=== PATIENT | female | born 1960 | race Two or more races ===

== ENCOUNTER 2016-11-10 17:28 | Emergency (ER) | payer OTHER ==
[2016-11-10] MEDS ORDERED: Labetalol 100 MG/20 ML MDV IVPUSH ONE ×3 (18:00→19:15)
[2016-11-10] MEDS ORDERED: Sodium Chloride 0.9% 10 ML Syringe FLUSH PRN (18:00)
--- NOTE | 2016-11-10 18:02 | EDM.PDOC ---
ED HISTORY OF PRESENT ILLNESS - General Chief Complaint: Cardiovascular Problem Stated Complaint: HIGH BLOOD PRESSURE Time Seen by Provider: 11/10/16 17:40 Source of Information: Reports: Patient, RN notes reviewed - History of Present Illness INITIAL COMMENTS - FREE TEXT/NARRATIVE: 56-year-old lady has been sent over from the clinic for evaluation and treatment of hypertension. She does have long-standing history of hypertension. She ran out of her meds a few weeks ago. She presented to the clinic for med refills. However her blood pressure was very high well over 200 systolic and she also seemed to have some "labored breathing". Therefore sent here for evaluation and treatment. She states she has had some anterior chest tightness and heaviness over the past week or so. She does get short of breath with exertion. She does have mild frontal headache. No voiding symptoms. - Related Data Allergies/ADRs: Allergies Allergy/AdvReac Type Severity Reaction Status Date / Time No Known Allergies Allergy Verified 08/10/15 07:06 Home Meds: Home Meds Doxazosin [Doxazosin Mesylate] 2 mg PO BEDTIME 10/15/15 [History] Metoprolol Tartrate [Lopressor] 50 mg PO Q12HR #60 tablet 07/23/16 [Rx] Allopurinol [Zyloprim] 100 mg PO BID #60 tablet 11/10/16 [Rx] Allopurinol [Zyloprim] 200 mg PO DAILY 11/10/16 [History] Doxazosin [Cardura] 2 mg PO BEDTIME #30 tablet 11/10/16 [Rx] Metoprolol Tartrate 50 mg PO BID #60 tablet 11/10/16 [Rx] amLODIPine [Norvasc] 10 mg PO DAILY 11/10/16 [History] amLODIPine [Norvasc] 10 mg PO DAILY #30 tablet 11/10/16 [Rx] Past Medical History Cardiovascular History: Reports: Hypertension Genitourinary History: Reports: Renal disease Musculoskeletal History: Reports: Gout Endocrine/Metabolic History: Reports: Diabetes, type II Social & Family History - Tobacco Use Smoking Status *Q: Never Smoker Second Hand Smoke Exposure: No - Caffeine Use Caffeine Use: Reports: None - Recreational Drug Use Recreational Drug Use: No - Living Situation & Occupation Occupation: unemployed ED ROS GENERAL - Review of Systems Review Of Systems: See Below Constitutional: Denies: fever, chills, diaphoresis HEENT: Denies: Sinus problem, Throat pain Respiratory: Reports: Shortness of Breath (On exertion) Cardiovascular: Reports: Chest pain (Occasional chest heaviness) GI/Abdominal: Denies: Abdominal pain, Nausea, Vomiting Musculoskeletal: Denies: neck pain, shoulder pain, arm pain Skin: Reports: no symptoms Neurological: Reports: Headache. Denies: Numbness (My), Tingling ED EXAM, GENERAL - Physical Exam Exam: See Below General Appearance: alert, no apparent distress Eye Exam: bilateral eye: PERRL Throat/Mouth: Normal inspection, Normal oropharynx Head: atraumatic. No: facial swelling Neck: supple, full range of motion, other (No JVD) Respiratory/Chest: respiratory distress (Mild tachypnea noted). No: rales, rhonchi, wheezing Cardiovascular: regular rate, rhythm GI/Abdominal: soft, non tender. No: guarding Back Exam: No: CVA tenderness (L), CVA tenderness (R) Extremities: normal inspection. No: pedal edema, leg pain Neurological: alert, oriented, no motor/sensory deficits Skin Exam: Warm, Dry, Normal color EKG INTERPRETATION EKG Date: 11/10/16 Rhythm: NSR [place]: normal P-wave: present QRS: normal ST-T: depressed (There is slight elevation in V2, T-wave inversion aVL) Course - Vital Signs Last Recorded V/S: Last Vital Signs Temp 98.1 F 11/10/16 17:49 Pulse 69 11/10/16 18:55 Resp 22 H 11/10/16 17:49 BP 183/75 H 11/10/16 18:55 Pulse Ox 98 11/10/16 17:49 - Orders/Labs/Meds Orders: Active Orders 24 hr Category Date Time Status EKG 12 Lead [EKG Documentation Completion] [RC] STAT Care 11/10/16 17:41 Active Peripheral IV Care [RC] . DIRECTED Care 11/10/16 18:01 Active Chest 1V Frontal [CR] Stat Exams 11/10/16 17:41 Taken Sodium Chloride 0.9% [Saline Flush] Med 11/10/16 18:00 Active 10 ml FLUSH ASDIRECTED PRN Peripheral IV Insertion Adult [OM.PC] Stat Oth 11/10/16 18:00 Ordered Medication Orders Sodium Chloride (Saline Flush) 10 ml FLUSH ASDIRECTED PRN PRN Reason: Keep Vein Open Last Admin: 11/10/16 18:35 Dose: 10 ml Labs: Laboratory Tests 11/10/16 11/10/16 11/10/16 Range/Units 18:12 18:12 18:12 WBC 11.49 H (3.98-10.04) K/mm3 RBC 2.94 L (3.98-5.22) M/mm3 Hgb 9.0 L (11.2-15.7) gm/L Hct 27.1 L (34.1-44.9) % MCV 92.2 (79.4-94.8) fl MCH 30.6 (25.6-32.2) pg MCHC 33.2 (32.2-35.5) g/dl RDW Std Deviation 43.0 (36.4-46.3) fL Plt Count 265 (182-369) K/mm3 MPV 8.7 L (9.4-12.3) fl Neut % (Auto) 73.4 H (34.0-71.1) % Lymph % (Auto) 13.0 L (19.3-51.7) % [place] % (Auto) 8.3 (4.7-12.5) % Eos % (Auto) 4.8 (0.7-5.8) Baso % (Auto) 0.3 (0.1-1.2) % Neut # (Auto) 8.44 H (1.56-6.13) K/mm3 Lymph # (Auto) 1.49 (1.18-3.74) K/mm3 [place] # (Auto) 0.95 H (0.24-0.36) K/mm3 Eos # (Auto) 0.55 H (0.04-0.36) K/mm3 Baso # (Auto) 0.04 (0.01-0.08) K/mm3 Sodium 138 (136-145) mEq/L Potassium 4.1 (3.5-5.1) mEq/L Chloride 105 (98-107) mEq/L Carbon Dioxide 19 L (21-32) mEq/L Anion Gap 18.1 H (5-15) BUN 78 H (7-18) mg/dL Creatinine 6.1 H (0.55-1.02) mg/dL Est Cr Clr Drug Dosing 7.31 mL/min Estimated GFR (MDRD) 7 (>60) mL/min BUN/Creatinine Ratio 12.8 L (14-18) Glucose 117 H (74-106) mg/dL Calcium 8.7 (8.5-10.1) mg/dL Total Bilirubin 0.2 (0.2-1.0) mg/dL AST 10 L (15-37) U/L ALT 16 (14-59) U/L Alkaline Phosphatase 73 (46-116) U/L Troponin I < 0.017 (0.00-0.056) ng/mL B-Natriuretic Peptide 125 H (0-100) pg/mL Total Protein 6.9 (6.4-8.2) g/dl Albumin 2.6 L (3.4-5.0) g/dl Globulin 4.3 gm/dL Albumin/Globulin Ratio 0.6 L (1-2) Meds: Medications Generic Name Dose Route Start Last Admin Trade Name Freq PRN Reason Stop Dose Admin Sodium Chloride 10 ml 11/10/16 18:00 11/10/16 18:35 Saline Flush FLUSH 10 ml ASDIRECTED PRN Administration Keep Vein Open Discontinued Medications Generic Name Dose Route Start Last Admin Trade Name Freq PRN Reason Stop Dose Admin Labetalol HCl 20 mg 11/10/16 18:00 11/10/16 18:30 Normodyne IVPUSH 11/10/16 18:01 20 mg ONETIME ONE Administration Protocol Labetalol HCl 20 mg 11/10/16 18:50 11/10/16 18:55 Normodyne IVPUSH 11/10/16 18:51 20 mg ONETIME ONE Administration Protocol Labetalol HCl 40 mg 11/10/16 19:15 Normodyne IVPUSH 11/10/16 19:16 ONETIME ONE Protocol - Re-Assessments/Exams Free Text/Narrative Re-Assessment/Exam: 11/10/16 19:33. Patient has a long-standing history of hypertension. She has been in renal failure in the past, was on a list for renal transplant. She presented here to the ED about a year ago and her creatinine was 4.0 at that time. She presented to our ED ED a few months ago and creatinine was 5.8. At that Time she been off meds for several months. Her ED provider at that time did contact her dog day care attendant Dr. Bermudez who wanted to see her in 2 or 3 days. It appears that she has not made any attempts for followup with Dr Bermudez. This evening her creatinine is 6.1. BUN 78. Potassium 4.1 hemoglobin 9.0. Other labs as documented. Her chest x-ray looks surprisingly good, no evidence for CHF at this time. I visited with Dr. Bermudez this evening and he states his clinic has been trying to contact her without success. She once again has been off meds for a while, she states several weeks. Her blood pressures on arrival here to the ED was in the 212/90 range. We have given 2 doses of labetalol 20 mg IV and now a dose of 40 mg IV. I have faxed scripts for her previously prescribed meds to her pharmacy, [facility]. I discussed with her and her that her kidney function is extremely poor at this point and that she is very close to needing dialysis or kidney transplant at this time. I discussed the importance of taking her meds as previously prescribed and not letting them run out. Dr. Bermudez is able to see her either 9:00 tomorrow morning or Thursday. I presented both options to the patient and her and they state they will go preferably Thursday. 11/10/16 19:45 contact phone number for her and her is [phone] which I believe is her 's cell phone number. 11/10/16 19:48 her blood pressure 189/71, will discharge home at this time Departure - Departure Time of Disposition: 19:51 Disposition: Home, Self-Care 01 Condition: serious Clinical Impression: Renal insufficiency syndrome Hypertension Qualifiers: Hypertension type: essential hypertension Qualified Code(s): I10 - Essential ( primary) hypertension Prescriptions: Allopurinol [Zyloprim] 100 mg PO BID #60 tablet Doxazosin [Cardura] 2 mg PO BEDTIME #30 tablet Metoprolol Tartrate 50 mg PO BID #60 tablet amLODIPine [Norvasc] 10 mg PO DAILY #30 tablet Referrals: Ayana Walsh [Primary Care Provider] - Forms: ED Department Discharge Additional Instructions: Prescriptions for your metoprolol,doxazosin, allopurinol have been sent electronic to any pharmacy [place]. You've been provided paper copy of prescription for your amlodipine. Fill these prescriptions this evening. Any pharmacy is open until [address] Bermudez at his clinic either tomorrow morning 9:00 central time or Thursday 9:00 central time which is 8:00 or time. Continue to see Dr. Walsh at our [facility] clinic. I do recommend he pickling drum operator a blood pressure cuff and check your blood pressure twice daily, keep a record for your medical providers. Return to ED as needed. Your blood pressure on discharge is improved, 189/71 - My Orders Last 24 Hours: My Active Orders 11/10/16 17:41 EKG 12 Lead [EKG Documentation Completion] [RC] STAT Chest 1V Frontal [CR] Stat 11/10/16 18:00 Sodium Chloride 0.9% [Saline Flush] 10 ml FLUSH ASDIRECTED PRN Peripheral IV Insertion Adult [OM.PC] Stat 11/10/16 18:01 Peripheral IV Care [RC] . DIRECTED - Assessment/Plan Last 24 Hours: My Active Orders 11/10/16 17:41 EKG 12 Lead [EKG Documentation Completion] [RC] STAT Chest 1V Frontal [CR] Stat 11/10/16 18:00 Sodium Chloride 0.9% [Saline Flush] 10 ml FLUSH ASDIRECTED PRN Peripheral IV Insertion Adult [OM.PC] Stat 11/10/16 18:01 Peripheral IV Care [RC] . DIRECTED
[2016-11-10 20:17] VITALS: BP 177/80
--- NOTE | 2016-11-11 07:05 | CR ---
Chest: Portable view of the chest was obtained. Comparison: Previous chest x-ray of 07/23/16. Heart size appears within normal limits for portable technique. Tortuous thoracic aorta is noted. Lungs are clear with no acute infiltrates. Bony structures are grossly intact. Impression: 1. Incidental findings. Nothing acute is identified on portable chest x-ray. Diagnostic code #2
== END 2016-11-10 20:14 | disposition home or self-care (01) ==
LOC: JD.ED 17:28
DX: I10 Essential (primary) hypertension (principal); N28.9 Disorder of kidney and ureter, unspecified; E11.9 Type 2 diabetes mellitus without complications; M10.9 Gout, unspecified; Z79.899 Other long term (current) drug therapy
CPT/HCPCS: 36415; 71010; 80053; 83880; 84484; 85025; 93005; 96374; 96376; 99284; J7050

== ENCOUNTER 2017-06-11 18:06 | Emergency (ER) | payer OTHER, SELFPAY ==
[2017-06-11] MEDS ORDERED: Sodium Chloride 0.9% 10 ML Syringe FLUSH PRN (18:31)
[2017-06-11] MEDS ORDERED: Sodium Bicarbonate 8.4% 50 MEQ/50 ML Syringe IVPUSH ONE (18:32)
[2017-06-11] MEDS ORDERED: Albuterol 0.083% 2.5 MG/3 ML Neb Soln NEB ONE (18:34)
[2017-06-11] MEDS ORDERED: Sodium Chloride 0.9% 100 ML ONE (18:48)
[2017-06-11 18:51] VITALS: BP 141/72
[2017-06-11] MEDS: Calcium Gluconate 10% 1 GM/10 ML SDV IVPUSH ONE ×2 (18:54→18:55)
[2017-06-11] MEDS ORDERED: Calcium Gluconate 1 GM in Sodium Chloride 0.9% 100 ML IV SCH (19:00)
--- NOTE | 2017-06-11 19:01 | EDM.PDOC ---
ED HPI GENERAL MEDICAL PROBLEM - General Chief Complaint: General Stated Complaint: Renal failure Time Seen by Provider: 06/11/17 18:30 Source of Information: Reports: Patient, Family ( and "soon to be" daughter in law), Secondary Social Studies Teacher (Interpretation service utlized), RN Notes Reviewed History Limitations: Reports: Language Barrier - History of Present Illness INITIAL COMMENTS - FREE TEXT/NARRATIVE: 56 year old female presents to the ED today, brought in by family and a professor of social work from adult protective services, due to concerns for her well being. She has been seeing Dr. Walsh and was diagnosed with renal failure. She had a scheduled appointment today with Dr. Walsh and did not show up. Dr. Walsh reportedly then called law enforcement to do a wellness check and adult protective services got involved. The paperwork brought by [facility] states "Aurora has kidney failure and is at very high risk for . her will not take her for appropriate medical care. He stated he would just wait for her to ." Patient is [place]. Secondary Social Studies Teacher service was utilized. I interviewed the patient in private with nursing staff and our professor of social work Esther present at bedside as well. I asked family to step out during initial interview. The patient said that she has known about her kidney failure for some time. She admits to intermittent chest pain that does not radiate. She also her right shoulder pain, back pain, and "vagina" pain. She denies pain with urination or abnormal vaginal discharge. She denies nausea, vomiting, diarrhea or constipation. She admits to feeling short of breath with exertion. No cough. The patient is a poor historian. I asked if she's been on dialysis and she said yes. I then asked her if she's ever been hooked to a machine to clean her blood and she said no. She says she voids about 3 times a day. - Related Data Allergies Allergy/AdvReac Type Severity Reaction Status Date / Time No Known Allergies Allergy Verified 06/11/17 18:47 Home Meds: Home Meds Doxazosin [Doxazosin Mesylate] 2 mg PO BEDTIME 10/15/15 [History] Metoprolol Tartrate [Lopressor] 50 mg PO Q12HR #60 tablet 07/23/16 [Rx] Allopurinol [Zyloprim] 100 mg PO BID #60 tablet 11/10/16 [Rx] Allopurinol [Zyloprim] 200 mg PO DAILY 11/10/16 [History] Doxazosin [Cardura] 2 mg PO BEDTIME #30 tablet 11/10/16 [Rx] Metoprolol Tartrate 50 mg PO BID #60 tablet 11/10/16 [Rx] amLODIPine [Norvasc] 10 mg PO DAILY 11/10/16 [History] amLODIPine [Norvasc] 10 mg PO DAILY #30 tablet 11/10/16 [Rx] Past Medical History Cardiovascular History: Reports: Hypertension Respiratory History: Reports: Asthma Genitourinary History: Reports: Renal Disease Musculoskeletal History: Reports: Gout Endocrine/Metabolic History: Reports: Diabetes, Type II Social & Family History - Tobacco Use Smoking Status *Q: Unknown Ever Smoked Second Hand Smoke Exposure: No - Caffeine Use Caffeine Use: Reports: None - Recreational Drug Use Recreational Drug Use: No - Living Situation & Occupation Occupation: Unemployed ED ROS GENERAL - Review of Systems Review Of Systems: See Below Constitutional: Reports: No Symptoms. Denies: Fever, Chills Respiratory: Reports: Shortness of Breath, Wheezing. Denies: Pleuritic Chest Pain, Cough, Sputum Cardiovascular: Reports: Chest Pain, Dyspnea on Exertion. Denies: Edema, Lightheadedness GI/Abdominal: Denies: Abdominal Pain, Constipation, Diarrhea, Nausea, Vomiting : Reports: Other (vaginal pain). Denies: Dysuria Neurological: Reports: No Symptoms. Denies: Confusion, Dizziness ED EXAM, GENERAL - Physical Exam Exam: See Below Exam Limited By: No Limitations General Appearance: Alert, Mild Distress, Obese Respiratory/Chest: No Respiratory Distress, Lungs Clear, Normal Breath Sounds, No Accessory Muscle Use, Chest Non-Tender, Other (audible wheezing but lungs are clear to auscultation. oxygen saturation is 97% on room air.) Cardiovascular: Normal Peripheral Pulses, Regular Rate, Rhythm, No Murmur GI/Abdominal: Normal Bowel Sounds, Soft, Non-Tender, No Distention Neurological: Alert, Normal Cognition Psychiatric: Flat Affect Skin Exam: Warm, Dry, Intact EKG INTERPRETATION EKG Date: 06/11/17 Time: 18:38 Rhythm: Other (Sinus negrita) Rate (Beats/Min): 52 [place]: Normal P-Wave: Present QRS: RBBB (incomplete) EKG Interpretation Comments: EKG read by Dr. Gordon. Sinus negrita 52 bpm with 1st degree AV block. Incomplete RBBB. T wave inversion in AVL. QT/QTc prolonged for rate. Course - Vital Signs Last Recorded V/S: Last Vital Signs Temp 98.0 F 06/11/17 18:47 Pulse 51 L 06/11/17 18:47 Resp 20 06/11/17 18:47 BP 141/72 H 06/11/17 18:47 Pulse Ox 96 06/11/17 18:47 - Orders/Labs/Meds Orders: Active Orders 24 hr Category Date Time Status Cardiac Monitoring [RC] . DIRECTED Care 06/11/17 18:31 Active EKG Documentation Completion [RC] ASDIRECTED Care 06/11/17 18:31 Active Peripheral IV Care [RC] . DIRECTED Care 06/11/17 18:31 Active RT Aerosol Therapy [RC] ASDIRECTED Care 06/11/17 18:34 Active Calcium Gluconate 1 gm Med 06/11/17 19:00 Active Sodium Chloride 0.9% [Normal Saline] 100 ml IV ASDIRECTED Sodium Chloride 0.9% [Saline Flush] Med 06/11/17 18:31 Active 10 ml FLUSH ASDIRECTED PRN Peripheral IV Insertion Adult [OM.PC] Stat Oth 06/11/17 18:31 Ordered EKG 12 Lead [EK] Stat Ther 06/11/17 18:31 Ordered Medication Orders Calcium Gluconate 1 gm/ Sodium (Chloride) 110 mls @ 110 mls/hr IV ASDIRECTED SANA Last Admin: 06/11/17 18:54 Dose: 110 mls/hr Sodium Chloride (Saline Flush) 10 ml FLUSH ASDIRECTED PRN PRN Reason: Keep Vein Open Last Admin: 06/11/17 18:56 Dose: 10 ml Labs: Laboratory Tests 06/11/17 06/11/17 06/11/17 Range/Units 18:30 18:30 18:30 WBC 8.97 (3.98-10.04) K/mm3 RBC 2.89 L (3.98-5.22) M/mm3 Hgb 8.9 L (11.2-15.7) gm/L Hct 27.3 L (34.1-44.9) % MCV 94.5 (79.4-94.8) fl MCH 30.8 (25.6-32.2) pg MCHC 32.6 (32.2-35.5) g/dl RDW Std Deviation 50.2 H (36.4-46.3) fL Plt Count 229 (182-369) K/mm3 MPV 9.7 (9.4-12.3) fl Neutrophils % (Manual) 77 H (40-60) % Band Neutrophils % 0 (0-10) % Lymphocytes % (Manual) 14 L (20-40) % Atypical Lymphs % 0 % Monocytes % (Manual) 4 (2-10) % Eosinophils % (Manual) 5 (0.7-5.8) % Basophils % (Manual) 0 L (0.1-1.2) Platelet Estimate Adequate Plt Morphology Comment Normal Polychromasia 1+ slight Hypochromasia 1+ slight Poikilocytosis 1+ slight Anisocytosis 1+ slight Microcytosis 1+ slight Macrocytosis 1+ slight Tear Drop Cells 1+ slight RBC Morph Comment Abnormal PT 9.9 (8.0-13.0) SECONDS INR 0.91 Sodium 137 (136-145) mEq/L Potassium 5.0 (3.5-5.1) mEq/L Chloride 105 (98-107) mEq/L Carbon Dioxide 16 L (21-32) mEq/L Anion Gap 21.0 H (5-15) BUN 83 H (7-18) mg/dL Creatinine 7.2 H (0.55-1.02) mg/dL Est Cr Clr Drug Dosing 6.19 mL/min Estimated GFR (MDRD) 6 (>60) mL/min BUN/Creatinine Ratio 11.5 L (14-18) Glucose 109 H (74-106) mg/dL Lactic Acid (0.4-2.0) mmol/L Calcium 9.3 (8.5-10.1) mg/dL Magnesium 2.6 H (1.8-2.4) mg/dl Total Bilirubin 0.2 (0.2-1.0) mg/dL AST 14 L (15-37) U/L ALT 20 (14-59) U/L Alkaline Phosphatase 52 (46-116) U/L Troponin I < 0.017 (0.00-0.056) ng/mL NT-Pro-B Natriuret Pep (0-125) pg/mL Total Protein 7.5 (6.4-8.2) g/dl Albumin 3.3 L (3.4-5.0) g/dl Globulin 4.2 gm/dL Albumin/Globulin Ratio 0.8 L (1-2) 06/11/17 06/11/17 Range/Units 18:30 19:26 WBC (3.98-10.04) K/mm3 RBC (3.98-5.22) M/mm3 Hgb (11.2-15.7) gm/L Hct (34.1-44.9) % MCV (79.4-94.8) fl MCH (25.6-32.2) pg MCHC (32.2-35.5) g/dl RDW Std Deviation (36.4-46.3) fL Plt Count (182-369) K/mm3 MPV (9.4-12.3) fl Neutrophils % (Manual) (40-60) % Band Neutrophils % (0-10) % Lymphocytes % (Manual) (20-40) % Atypical Lymphs % % Monocytes % (Manual) (2-10) % Eosinophils % (Manual) (0.7-5.8) % Basophils % (Manual) (0.1-1.2) Platelet Estimate Plt Morphology Comment Polychromasia Hypochromasia Poikilocytosis Anisocytosis Microcytosis Macrocytosis Tear Drop Cells RBC Morph Comment PT (8.0-13.0) SECONDS INR Sodium (136-145) mEq/L Potassium (3.5-5.1) mEq/L Chloride (98-107) mEq/L Carbon Dioxide (21-32) mEq/L Anion Gap (5-15) BUN (7-18) mg/dL Creatinine (0.55-1.02) mg/dL Est Cr Clr Drug Dosing mL/min Estimated GFR (MDRD) (>60) mL/min BUN/Creatinine Ratio (14-18) Glucose (74-106) mg/dL Lactic Acid 0.4 (0.4-2.0) mmol/L Calcium (8.5-10.1) mg/dL Magnesium (1.8-2.4) mg/dl Total Bilirubin (0.2-1.0) mg/dL AST (15-37) U/L ALT (14-59) U/L Alkaline Phosphatase (46-116) U/L Troponin I (0.00-0.056) ng/mL NT-Pro-B Natriuret Pep 2958 H (0-125) pg/mL Total Protein (6.4-8.2) g/dl Albumin (3.4-5.0) g/dl Globulin gm/dL Albumin/Globulin Ratio (1-2) Meds: Medications Generic Name Dose Route Start Last Admin Trade Name Jin PRN Reason Stop Dose Admin Calcium Gluconate 1 gm/ Sodium 110 mls @ 110 mls/hr 06/11/17 19:00 06/11/17 18:54 Chloride IV 110 mls/hr ASDIRECTED SANA Administration Sodium Chloride 10 ml 06/11/17 18:31 06/11/17 18:56 Saline Flush FLUSH 10 ml ASDIRECTED PRN Administration Keep Vein Open Discontinued Medications Generic Name Dose Route Start Last Admin Trade Name Freq PRN Reason Stop Dose Admin Albuterol 10 mg 06/11/17 18:34 06/11/17 18:43 Proventil Neb Soln NEB 06/11/17 18:35 10 mg ONETIME ONE Administration Calcium Gluconate 1 gm 06/11/17 18:32 06/11/17 18:55 Calcium Gluconate IVPUSH 06/11/17 18:33 Not Given ONETIME ONE Sodium Chloride Confirm 06/11/17 18:48 06/11/17 18:55 Normal Saline Administered 06/11/17 18:49 Not Given Dose 100 mls @ as directed .ROUTE .STK-MED ONE Sodium Bicarbonate 50 meq 06/11/17 18:32 06/11/17 18:56 Sodium Bicarbonate 8.4% IVPUSH 06/11/17 18:33 50 meq ONETIME ONE Administration - Re-Assessments/Exams Free Text/Narrative Re-Assessment/Exam: Initial history was obtained with our naval aircrewman avionics service. Discussed patient with Dr. Gordon immediately after history H&P exam. Dr. Gordon recommends treating immediately with calcium gluconate, sodium bicarb and Albuterol 10mg neb due to suspected hyperkalemia related to renal failure. Labs reviewed from 06/02/17. Creatinine at that time was 7.1 with BUN 78. Potassium was 5.6 at that time. H&H was 9.3 and 28. 06/11/17 19:30 Our nurse TRISTON English is Dave as well and was able to spend a lot of time with the patient and family explaining the risk of this going untreated. After a long discussion, the patient and her family have agreed to transfer to [place] to undergo renal failure treatment. 06/11/17 19:[address] Dorado at [facility]. He has accepted care of patient for direct admission. Patient will be transported via ground ambulance. Departure - Departure Time of Disposition: 20:30 Disposition: DC/Tfer to [facility] 02 Condition: Fair Clinical Impression: Renal failure Qualifiers: Renal failure chronicity: acute on chronic Acute renal failure type: unspecified Chronic kidney disease stage: unspecified stage Qualified Code(s): N17.9 - Acute kidney failure, unspecified - Discharge Information Referrals: Ayana Walsh [Primary Care Provider] - Forms: ED Department Discharge - My Orders Last 24 Hours: My Active Orders 06/11/17 18:31 Cardiac Monitoring [RC] . DIRECTED EKG Documentation Completion [RC] ASDIRECTED Peripheral IV Care [RC] . DIRECTED Sodium Chloride 0.9% [Saline Flush] 10 ml FLUSH ASDIRECTED PRN Peripheral IV Insertion Adult [OM.PC] Stat EKG 12 Lead [EK] Stat 06/11/17 18:34 RT Aerosol Therapy [RC] ASDIRECTED 06/11/17 19:00 Calcium Gluconate 1 gm Sodium Chloride 0.9% [Normal Saline] 100 ml IV ASDIRECTED - Assessment/Plan Last 24 Hours: My Active Orders 06/11/17 18:31 Cardiac Monitoring [RC] . DIRECTED EKG Documentation Completion [RC] ASDIRECTED Peripheral IV Care [RC] . DIRECTED Sodium Chloride 0.9% [Saline Flush] 10 ml FLUSH ASDIRECTED PRN Peripheral IV Insertion Adult [OM.PC] Stat EKG 12 Lead [EK] Stat 06/11/17 18:34 RT Aerosol Therapy [RC] ASDIRECTED 06/11/17 19:00 Calcium Gluconate 1 gm Sodium Chloride 0.9% [Normal Saline] 100 ml IV ASDIRECTED
== END 2017-06-11 20:40 ==
LOC: JD.ED 18:06
DX: N17.9 Acute kidney failure, unspecified (principal); I10 Essential (primary) hypertension; E11.9 Type 2 diabetes mellitus without complications; Z79.899 Other long term (current) drug therapy
CPT/HCPCS: 36415; 80053; 83605; 83735; 83880; 84484; 85025; 85610; 93005; 94640; 96365; 96375; 99285; J0610; J7030; J7050; 93010

== ENCOUNTER 2017-08-28 10:17 | Emergency (ER) | payer OTHER, SELFPAY ==
[2017-08-28] MEDS: Labetalol 100 MG/20 ML MDV IVPUSH ONE (11:13)
[2017-08-28] MEDS: Sodium Chloride 0.9% 10 ML Syringe FLUSH PRN (11:14)
--- NOTE | 2017-08-28 11:35 | EDM.PDOC ---
ED HPI GENERAL MEDICAL PROBLEM - General Chief Complaint: Cardiovascular Problem Stated Complaint: HIGH BP Time Seen by Provider: 08/28/17 10:34 Source of Information: Reports: Patient, Family, RN Notes Reviewed () - History of Present Illness INITIAL COMMENTS - FREE TEXT/NARRATIVE: Patient is been sent over from [facility] clinic with concern about elevated blood pressure. She had a blood pressure at the clinic in the 220s systolic range. On arrival to ED blood pressure is around 211 systolic. She has very slight headache. She does have history of renal failure on dialysis. Had long-standing hypertension. Been on multiple medications for that. She did run out of her amlodipine about 5 or 6 weeks ago, has not had that prescription refilled. Apparently has continued to take her other 3 blood pressure meds as well as other previously prescribed medications. She has no chest pain today, no abdominal pain nausea or vomiting. She has no visual symptomatology. He has no upper or lower extremity symptomatology. Last dialysis run was yesterday. Headache Pain Score (Numeric/FACES): 6 - Related Data Allergies Allergy/AdvReac Type Severity Reaction Status Date / Time No Known Allergies Allergy Verified 06/11/17 18:47 Home Meds: Home Meds Metoprolol Tartrate [Lopressor] 50 mg PO Q12HR #60 tablet 07/23/16 [Rx] Allopurinol [Zyloprim] 100 mg PO BID 11/10/16 [History] Cinacalcet [Sensipar] 30 mg PO DAILY 08/28/17 [History] Ferrous Sulfate [Iron] 325 mg PO BID 08/28/17 [History] Lisinopril 20 mg PO DAILY 08/28/17 [History] Losartan Potassium 50 mg PO DAILY 08/28/17 [History] Losartan [Cozaar] 50 mg PO DAILY #30 tab 08/28/17 [Rx] Sevelamer Carbonate [Renvela] 800 mg PO TID 08/28/17 [History] Sodium Bicarbonate 325 mg PO TID 08/28/17 [History] amLODIPine Besylate [Amlodipine Besylate] 10 mg PO DAILY #30 tablet 08/28/17 [Rx ] Past Medical History Cardiovascular History: Reports: Hypertension Respiratory History: Reports: Asthma Genitourinary History: Reports: Dialysis, Renal Disease Musculoskeletal History: Reports: Gout Neurological History: Reports: TIA Endocrine/Metabolic History: Reports: Diabetes, Type II Social & Family History - Family History Family Medical History: Noncontributory - Tobacco Use Smoking Status *Q: Never Smoker Second Hand Smoke Exposure: No - Caffeine Use Caffeine Use: Reports: Tea - Recreational Drug Use Recreational Drug Use: No - Living Situation & Occupation Occupation: Unemployed ED ROS GENERAL - Review of Systems Review Of Systems: See Below Constitutional: Denies: Fever, Chills, Diaphoresis HEENT: Reports: No Symptoms Respiratory: Denies: Shortness of Breath, Pleuritic Chest Pain Cardiovascular: Denies: Chest Pain GI/Abdominal: Denies: Abdominal Pain, Nausea, Vomiting Musculoskeletal: Reports: No Symptoms Skin: Reports: No Symptoms Neurological: Reports: Headache (Mild) ED EXAM, GENERAL - Physical Exam Exam: See Below General Appearance: Alert, No Apparent Distress Eye Exam: Bilateral Eye: PERRL Nose: Normal Inspection Throat/Mouth: Normal Inspection, Normal Oropharynx Head: Atraumatic. No: Facial Swelling Neck: Supple, Full Range of Motion Respiratory/Chest: No Respiratory Distress, Lungs Clear, Normal Breath Sounds Cardiovascular: Regular Rate, Rhythm GI/Abdominal: Soft, Non-Tender Back Exam: No: CVA Tenderness (L) Extremities: No: Pedal Edema, Leg Pain Neurological: Alert, Oriented, No Motor/Sensory Deficits Skin Exam: Warm, Dry, Normal Color Course - Vital Signs Last Recorded V/S: Last Vital Signs Temp 97.8 F 08/28/17 10:28 Pulse 59 L 08/28/17 11:37 Resp 19 08/28/17 11:37 BP 194/56 H 08/28/17 12:46 Pulse Ox 93 L 08/28/17 11:37 - Orders/Labs/Meds Orders: Active Orders 24 hr Category Date Time Status Peripheral IV Care [RC] . DIRECTED Care 08/28/17 11:03 Active Peripheral IV Insertion Adult [OM.PC] Stat Oth 08/28/17 11:03 Ordered Labs: Laboratory Tests 08/28/17 08/28/17 Range/Units 11:00 11:10 WBC 8.57 (3.98-10.04) K/mm3 RBC 3.65 L (3.98-5.22) M/mm3 Hgb 11.5 (11.2-15.7) gm/L Hct 36.8 (34.1-44.9) % MCV 100.8 H (79.4-94.8) fl MCH 31.5 (25.6-32.2) pg MCHC 31.3 L (32.2-35.5) g/dl RDW Std Deviation 56.3 H (36.4-46.3) fL Plt Count 252 (182-369) K/mm3 MPV 9.1 L (9.4-12.3) fl Neut % (Auto) 56.8 (34.0-71.1) % Lymph % (Auto) 27.5 (19.3-51.7) % [place] % (Auto) 9.6 (4.7-12.5) % Eos % (Auto) 5.3 (0.7-5.8) Baso % (Auto) 0.7 (0.1-1.2) % Neut # (Auto) 4.87 (1.56-6.13) K/mm3 Lymph # (Auto) 2.36 (1.18-3.74) K/mm3 [place] # (Auto) 0.82 H (0.24-0.36) K/mm3 Eos # (Auto) 0.45 H (0.04-0.36) K/mm3 Baso # (Auto) 0.06 (0.01-0.08) K/mm3 Sodium 137 (136-145) mEq/L Potassium 4.3 (3.5-5.1) mEq/L Chloride 101 (98-107) mEq/L Carbon Dioxide 27 (21-32) mEq/L Anion Gap 13.3 (5-15) BUN 37 H (7-18) mg/dL Creatinine 6.4 H (0.55-1.02) mg/dL Est Cr Clr Drug Dosing 6.88 mL/min Estimated GFR (MDRD) 7 (>60) mL/min BUN/Creatinine Ratio 5.8 L (14-18) Glucose 83 (74-106) mg/dL Calcium 9.5 (8.5-10.1) mg/dL Total Bilirubin 0.4 (0.2-1.0) mg/dL AST 35 (15-37) U/L ALT 73 H (14-59) U/L Alkaline Phosphatase 90 (46-116) U/L Total Protein 7.7 (6.4-8.2) g/dl Albumin 3.4 (3.4-5.0) g/dl Globulin 4.3 gm/dL Albumin/Globulin Ratio 0.8 L (1-2) Meds: Medications Discontinued Medications Generic Name Dose Route Start Last Admin Trade Name Jin PRN Reason Stop Dose Admin Amlodipine Besylate 10 mg 08/28/17 12:28 08/28/17 12:46 Norvasc PO 08/28/17 12:29 10 mg ONETIME ONE Administration Labetalol HCl 20 mg 08/28/17 11:05 08/28/17 11:13 Normodyne IVPUSH 08/28/17 11:06 20 mg ONETIME ONE Administration Protocol Sodium Chloride 10 ml 08/28/17 11:03 08/28/17 11:14 Saline Flush FLUSH 10 ml ASDIRECTED PRN Administration Keep Vein Open - Re-Assessments/Exams Free Text/Narrative Re-Assessment/Exam: 08/28/17 12:29 Blood pressures come down to 160-180 systolic after a low 20 mg IV. Labs are as documented. She is not been taking amlodipine previously prescribed and last prescribed June 11. Therefore likely ran out around the end of the year about 6 weeks ago. We'll have her start back on that. She is asymptomatic at this time. Discharge instructions as documented Departure - Departure Time of Disposition: 12:30 Disposition: Home, Self-Care 01 Condition: Fair Clinical Impression: Hypertension Qualifiers: Hypertension type: essential hypertension Qualified Code(s): I10 - Essential ( primary) hypertension Prescriptions: amLODIPine Besylate [Amlodipine Besylate] 10 mg PO DAILY #30 tablet Losartan [Cozaar] 50 mg PO DAILY #30 tab Referrals: Ayana Walsh [Primary Care Provider] - Forms: ED Department Discharge Additional Instructions: Continue all of your medications as previously prescribed. Restart taking the amlodipine 10 mg daily. Follow-up clinic with Dr. Walsh in about 2 weeks, call for appointment. Return to ED as needed if symptoms worsening in any way. - My Orders Last 24 Hours: My Active Orders 08/28/17 11:03 Peripheral IV Care [RC] . DIRECTED Peripheral IV Insertion Adult [OM.PC] Stat - Assessment/Plan Last 24 Hours: My Active Orders 08/28/17 11:03 Peripheral IV Care [RC] . DIRECTED Peripheral IV Insertion Adult [OM.PC] Stat
[2017-08-28 12:46] VITALS: BP 194/56
[2017-08-28] MEDS: amLODIPine 5 MG Tab PO ONE (12:46)
== END 2017-08-28 12:53 | disposition home or self-care (01) ==
LOC: JD.ED 10:17
DX: I12.9 Hypertensive chronic kidney disease with stage 1 through stage 4 chronic kidney disease, or unspecified chronic kidney disease (principal); E11.22 Type 2 diabetes mellitus with diabetic chronic kidney disease; N18.9 Chronic kidney disease, unspecified; Z99.2 Dependence on renal dialysis; Z79.899 Other long term (current) drug therapy
CPT/HCPCS: 36415; 80053; 85025; 96374; 99283; A9270; J7050

== ENCOUNTER 2019-07-05 13:39 | Emergency (ER) | payer BC, OTHER, SELFPAY ==
[2019-07-05 14:24] VITALS: BP 145/62; PULSE 66
--- NOTE | 2019-07-05 15:33 | EDM.PDOC ---
ED HPI GENERAL MEDICAL PROBLEM - General Chief Complaint: General Stated Complaint: LOW POTASSIUM Time Seen by Provider: 07/05/19 14:31 Source of Information: Reports: Patient, RN Notes Reviewed - History of Present Illness INITIAL COMMENTS - FREE TEXT/NARRATIVE: 58-year-old lady has been sent here from [facility] for further treatment of hyperkalemia. She presented to the clinic with concern about cough that she has had for several days or more. She was not found to have pneumonia and was not found to be in bad heart failure. Her potassium did come back at 6.3 which was verified on recheck. Other than the cough and dry itchy skin patient has no complaints at this time. She does not feel any more short of breath than usual. She is not having chest or abdominal pain. Her last dialysis run was yesterday, next dialysis run will be 2 days from now. - Related Data Allergies Allergy/AdvReac Type Severity Reaction Status Date / Time RONI Inhibitors Allergy Cough Verified 09/06/18 16:01 Home Meds: Home Meds Metoprolol Tartrate [Lopressor] 50 mg PO Q12HR #60 tablet 07/23/16 [Rx] Allopurinol [Zyloprim] 100 mg PO DAILY 11/10/16 [History] Ferrous Sulfate [Iron] 325 mg PO BID 08/28/17 [History] Sevelamer Carbonate [Renvela] 800 mg PO TID 08/28/17 [History] amLODIPine Besylate [Amlodipine Besylate] 10 mg PO DAILY #30 tablet 08/28/17 [Rx ] Calcium Acetate 667 mg PO TID 09/06/18 [History] Cider Vinegar [Apple Cider Vinegar] 300 mg PO DAILY 09/06/18 [History] Cinacalcet [Sensipar] 60 mg PO BEDTIME 09/06/18 [History] Doxazosin [Cardura] 1 mg PO DAILY 09/06/18 [History] Losartan [Cozaar] 100 mg PO BEDTIME 09/06/18 [History] Sodium Polystyrene Sulfonate [Kayexalate] 15 gm PO Q8HR #1 cup 07/05/19 [Rx] Zolpidem Tartrate [Ambien] 5 mg PO ASDIRECTED 07/05/19 [History] Past Medical History HEENT History: Reports: None Cardiovascular History: Reports: Heart Murmur, Hypertension Respiratory History: Reports: Asthma Gastrointestinal History: Reports: None Genitourinary History: Reports: Dialysis, Renal Disease [employer] History: Reports: None Musculoskeletal History: Reports: Gout Neurological History: Reports: TIA Psychiatric History: Reports: None Endocrine/Metabolic History: Reports: Diabetes, Type II Hematologic History: Reports: Other (See Below) Other Hematologic History: AV fistula Immunologic History: Reports: None Oncologic (Cancer) History: Reports: None Dermatologic History: Reports: None - Past Surgical History HEENT Surgical History: Reports: None Respiratory Surgical History: Reports: None Female Surgical History: Reports: None Endocrine Surgical History: Reports: None Neurological Surgical History: Reports: None Musculoskeletal Surgical History: Reports: None Oncologic Surgical History: Reports: None Dermatological Surgical History: Reports: None Social & Family History - Family History Family Medical History: Noncontributory - Tobacco Use Smoking Status *Q: Never Smoker - Caffeine Use Caffeine Use: Reports: Soda - Recreational Drug Use Recreational Drug Use: No - Living Situation & Occupation Occupation: Unemployed ED ROS GENERAL - Review of Systems Review Of Systems: See Below Constitutional: Denies: Fever, Chills, Diaphoresis HEENT: Denies: Throat Pain Respiratory: Reports: Cough. Denies: Shortness of Breath, Pleuritic Chest Pain , Sputum Cardiovascular: Denies: Chest Pain GI/Abdominal: Denies: Abdominal Pain, Nausea, Vomiting Musculoskeletal: Denies: Neck Pain, Shoulder Pain Skin: Denies: Rash Neurological: Denies: Trouble Speaking, Difficulty Walking, Weakness ED EXAM, GENERAL - Physical Exam Exam: See Below General Appearance: Alert, No Apparent Distress Eye Exam: Bilateral Eye: PERRL Throat/Mouth: Normal Inspection, Normal Oropharynx Head: Atraumatic Neck: Supple Respiratory/Chest: No Respiratory Distress, Lungs Clear, Normal Breath Sounds Cardiovascular: Regular Rate, Rhythm GI/Abdominal: Soft, Non-Tender Extremities: Normal Inspection, Normal Range of Motion. No: Leg Pain Neurological: Alert, Oriented, No Motor/Sensory Deficits Skin Exam: Warm, Dry, Ecchymosis EKG INTERPRETATION EKG Date: 07/05/19 Rhythm: NSR (Narrow complex) [place]: Normal P-Wave: Present QRS: Normal ST-T: Elevated (Very slight ST elevation V2 and V3, T waves are normal.) Course - Vital Signs Last Recorded V/S: Last Vital Signs Temp 98.1 F 07/05/19 14:21 Pulse 66 07/05/19 14:21 Resp 20 07/05/19 14:21 BP 145/62 H 07/05/19 14:21 Pulse Ox 95 07/05/19 14:21 - Orders/Labs/Meds Orders: Active Orders 24 hr Category Date Time Status EKG 12 Lead [EKG Documentation Completion] [RC] STAT Care 07/05/19 14:49 Active Meds: Medications Discontinued Medications Generic Name Dose Route Start Last Admin Trade Name Jin PRN Reason Stop Dose Admin Sodium Polystyrene Sulfonate 75 gm 07/05/19 15:48 07/05/19 15:59 Kayexalate PO 07/05/19 15:49 75 gm ONETIME ONE Administration - Re-Assessments/Exams Free Text/Narrative Re-Assessment/Exam: 07/05/19 18:38 As noted K+ was 6.3 at the clinic, verified on recheck. EKG is narrow complex, p waves are not peaked, NSR, no ectopy, vitals are all good. She is not in acute distress. Rather than go kayexalate enema am going to treat her with oral kayexalate, 2 doses today, 3 doses tomorrow. Discharge instr. as documented. Departure - Departure Time of Disposition: 15:30 Disposition: Home, Self-Care 01 Condition: Fair Clinical Impression: Hyperkalemia - Discharge Information Prescriptions: Sodium Polystyrene Sulfonate [Kayexalate] 15 gm PO Q8HR #1 cup Instructions: Hyperkalemia, Bptx-un-Suba Referrals: Mavis Clarke MD [Primary Care Provider] - Forms: ED Department Discharge Additional Instructions: Kayexalate 60 ml twice today and 3 times tomorrow. That will help lower your potassium to a better level. Than continue with dialysis as planned. Vaporizer or steam as needed for dry skin and for cough. Lubriderm lotion will help your dry itchy skin to feel better. Follow up clinic as needed. Return to ED as needed. Sepsis Event Note - Evaluation Sepsis Screening Result: No Definite Risk - Focused Exam Vital Signs: Vital Signs Temp Pulse Resp BP Pulse Ox 07/05/19 14:21 98.1 F 66 20 145/62 H 95 Date Exam was Performed: 07/05/19 Time Exam was Performed: 18:36 - My Orders Last 24 Hours: My Active Orders 07/05/19 14:49 EKG 12 Lead [EKG Documentation Completion] [RC] STAT - Assessment/Plan Last 24 Hours: My Active Orders 07/05/19 14:49 EKG 12 Lead [EKG Documentation Completion] [RC] STAT
[2019-07-05] MEDS ORDERED: Sodium Polystyrene Sulfonate 15 GM/60 ML Susp 60 ML Bot PO ONE (15:48)
== END 2019-07-05 16:04 | disposition home or self-care (01) ==
LOC: SUPCPDRO 13:39 → JD.ED 13:39
DX: E87.5 Hyperkalemia (principal); J45.909 Unspecified asthma, uncomplicated; E11.22 Type 2 diabetes mellitus with diabetic chronic kidney disease; I12.0 Hypertensive chronic kidney disease with stage 5 chronic kidney disease or end stage renal disease; N18.6 End stage renal disease; Z88.8 Allergy status to other drugs, medicaments and biological substances; Z99.2 Dependence on renal dialysis; Z79.899 Other long term (current) drug therapy; Z86.73 Personal history of transient ischemic attack (TIA), and cerebral infarction without residual deficits
CPT/HCPCS: 93005; 99284; A9270; 93010; 99283

== ENCOUNTER 2019-07-28 10:19 | Emergency (ER) | payer BC, OTHER, SELFPAY ==
[2019-07-28] MEDS ORDERED: Albuterol/Ipratropium 3.0-0.5 MG/3 ML Neb Soln NEB ONE (10:45)
[2019-07-28] MEDS ORDERED: Sodium Chloride 0.9% 10 ML Syringe FLUSH PRN (10:47)
[2019-07-28] MEDS ORDERED: LORazepam 2 MG/ML SDV IVPUSH ONE (10:47)
--- NOTE | 2019-07-28 11:12 | EDM.PDOC ---
ED HPI GENERAL MEDICAL PROBLEM - General Chief Complaint: Respiratory Problem Stated Complaint: SOB Time Seen by Provider: 07/28/19 10:32 Source of Information: Reports: Patient, RN Notes Reviewed - History of Present Illness INITIAL COMMENTS - FREE TEXT/NARRATIVE: 59-year-old female has been sent over from renal dialysis unit chest pain, wheezing, difficulty breathing. She dropped her sats down into the 80's which is unusual for her. She does not use home oxygen. She was part way into her dialysis run this morning but they did have to abort due to the above symptoms. She also was having L upper abd pain and cramping. She was OK yesterday, was feeling fine during the night but then started having the symptoms "during dialysis". She states she has had a cough for the past 2 months that has been worsening the last few days. She is not aware of recent fever or chills. Her cough is occasionally productive. She has pain of the left lower rib cage with coughing, deep breathing and especially with movement. There has been no vomiting. She has had recent diarhea. - Related Data Allergies Allergy/AdvReac Type Severity Reaction Status Date / Time RONI Inhibitors AdvReac Cough Verified 07/28/19 13:56 Home Meds: Home Meds Metoprolol Tartrate [Lopressor] 50 mg PO Q12HR #60 tablet 07/23/16 [Rx] Allopurinol [Zyloprim] 200 mg PO DAILY 11/10/16 [History] Ferrous Sulfate [Iron] 325 mg PO BID 08/28/17 [History] Sevelamer Carbonate [Renvela] 800 mg PO TID 08/28/17 [History] Doxazosin [Cardura] 1 mg PO DAILY 09/06/18 [History] Losartan [Cozaar] 100 mg PO BEDTIME 09/06/18 [History] Zolpidem Tartrate [Ambien] 5 mg PO ASDIRECTED 07/05/19 [History] amLODIPine Besylate [Amlodipine Besylate] 15 mg PO DAILY 07/28/19 [History] Past Medical History HEENT History: Reports: None Cardiovascular History: Reports: Heart Murmur, Hypertension Respiratory History: Reports: Asthma Gastrointestinal History: Reports: None Genitourinary History: Reports: Dialysis, Renal Disease [employer] History: Reports: None Musculoskeletal History: Reports: Gout Neurological History: Reports: TIA Psychiatric History: Reports: None Endocrine/Metabolic History: Reports: Diabetes, Type II Hematologic History: Reports: Other (See Below) Other Hematologic History: AV fistula Immunologic History: Reports: None Oncologic (Cancer) History: Reports: None Dermatologic History: Reports: None - Past Surgical History HEENT Surgical History: Reports: None Respiratory Surgical History: Reports: None Female Surgical History: Reports: None Endocrine Surgical History: Reports: None Neurological Surgical History: Reports: None Musculoskeletal Surgical History: Reports: None Oncologic Surgical History: Reports: None Dermatological Surgical History: Reports: None Social & Family History - Family History Family Medical History: Noncontributory - Caffeine Use Caffeine Use: Reports: Soda - Living Situation & Occupation Occupation: Unemployed ED ROS GENERAL - Review of Systems Review Of Systems: See Below Constitutional: Denies: Fever, Chills HEENT: Denies: Rhinitis, Sinus Problem, Throat Pain Respiratory: Reports: Shortness of Breath, Wheezing, Pleuritic Chest Pain, Cough , Sputum Cardiovascular: Reports: Chest Pain GI/Abdominal: Reports: Abdominal Pain, Diarrhea. Denies: Nausea, Vomiting Musculoskeletal: Reports: No Symptoms Skin: Reports: No Symptoms Neurological: Reports: No Symptoms ED EXAM, GENERAL - Physical Exam Exam: See Below General Appearance: Alert, Anxious (Mild) Eye Exam: Bilateral Eye: PERRL Throat/Mouth: Normal Inspection Head: Atraumatic Neck: Supple Respiratory/Chest: Respiratory Distress (Moderate tachypnea), Wheezing. No: Rales, Rhonchi (Mild bilateral) Cardiovascular: Regular Rate, Rhythm GI/Abdominal: Tender Extremities: No: Leg Pain Neurological: Alert, No Motor/Sensory Deficits Skin Exam: Warm, Dry, Normal Color EKG INTERPRETATION EKG Date: 07/28/19 Rhythm: NSR Clifford: Normal P-Wave: Present QRS: Normal ST-T: Normal Course - Vital Signs Last Recorded V/S: Last Vital Signs Temp 97.6 F 07/28/19 11:04 Pulse 73 07/28/19 11:04 Resp 16 07/28/19 11:04 BP 162/73 H 07/28/19 11:04 Pulse Ox 98 07/28/19 11:04 - Orders/Labs/Meds Orders: Active Orders 24 hr Category Date Time Status EKG 12 Lead [EKG Documentation Completion] [RC] STAT Care 07/28/19 11:21 Active Peripheral IV Care [RC] . DIRECTED Care 07/28/19 10:48 Active RT Aerosol Therapy [RC] ASDIRECTED Care 07/28/19 10:45 Active CULTURE BLOOD [BC] Stat Lab 07/28/19 13:49 Received Peripheral IV Insertion Adult [OM.PC] Stat Oth 07/28/19 10:47 Ordered Labs: Laboratory Tests 07/28/19 07/28/19 07/28/19 Range/Units 10:47 11:09 11:09 WBC 9.97 (3.98-10.04) K/mm3 RBC 2.95 L (3.98-5.22) M/mm3 Hgb 9.7 L (11.2-15.7) gm/dl Hct 30.5 L (34.1-44.9) % MCV 103.4 H (79.4-94.8) fl MCH 32.9 H (25.6-32.2) pg MCHC 31.8 L (32.2-35.5) g/dl RDW Std Deviation 49.5 H (36.4-46.3) fL Plt Count 242 (182-369) K/mm3 MPV 8.8 L (9.4-12.3) fl Neut % (Auto) 83.1 H (34.0-71.1) % Lymph % (Auto) 10.2 L (19.3-51.7) % [place] % (Auto) 4.8 (4.7-12.5) % Eos % (Auto) 1.4 (0.7-5.8) Baso % (Auto) 0.2 (0.1-1.2) % Neut # (Auto) 8.28 H (1.56-6.13) K/mm3 Lymph # (Auto) 1.02 L (1.18-3.74) K/mm3 [place] # (Auto) 0.48 H (0.24-0.36) K/mm3 Eos # (Auto) 0.14 (0.04-0.36) K/mm3 Baso # (Auto) 0.02 (0.01-0.08) K/mm3 PT (9.7-12.0) SECONDS INR Sodium (136-145) mEq/L Potassium (3.5-5.1) mEq/L Chloride (98-107) mEq/L Carbon Dioxide (21-32) mEq/L Anion Gap (5-15) BUN (7-18) mg/dL Creatinine (0.55-1.02) mg/dL Est Cr Clr Drug Dosing Estimated GFR (MDRD) (>60) mL/min BUN/Creatinine Ratio (14-18) Glucose (74-106) mg/dL Lactic Acid (0.4-2.0) mmol/L Calcium (8.5-10.1) mg/dL Total Bilirubin (0.2-1.0) mg/dL AST (15-37) U/L ALT (14-59) U/L Alkaline Phosphatase (46-116) U/L C-Reactive Protein 4.1 H* (<1.0) mg/dL NT-Pro-B Natriuret Pep 11995 H (0-125) pg/mL Total Protein (6.4-8.2) g/dl Albumin (3.4-5.0) g/dl Globulin gm/dL Albumin/Globulin Ratio (1-2) 07/28/19 07/28/19 07/28/19 Range/Units 11:09 11:09 14:15 WBC (3.98-10.04) K/mm3 RBC (3.98-5.22) M/mm3 Hgb (11.2-15.7) gm/dl Hct (34.1-44.9) % MCV (79.4-94.8) fl MCH (25.6-32.2) pg MCHC (32.2-35.5) g/dl RDW Std Deviation (36.4-46.3) fL Plt Count (182-369) K/mm3 MPV (9.4-12.3) fl Neut % (Auto) (34.0-71.1) % Lymph % (Auto) (19.3-51.7) % Lewis % (Auto) (4.7-12.5) % Eos % (Auto) (0.7-5.8) Baso % (Auto) (0.1-1.2) % Neut # (Auto) (1.56-6.13) K/mm3 Lymph # (Auto) (1.18-3.74) K/mm3 Lewis # (Auto) (0.24-0.36) K/mm3 Eos # (Auto) (0.04-0.36) K/mm3 Baso # (Auto) (0.01-0.08) K/mm3 PT 10.8 (9.7-12.0) SECONDS INR 0.99 Sodium 141 (136-145) mEq/L Potassium 3.6 (3.5-5.1) mEq/L Chloride 100 (98-107) mEq/L Carbon Dioxide 28 (21-32) mEq/L Anion Gap 16.6 H (5-15) BUN 42 H (7-18) mg/dL Creatinine 6.9 H D (0.55-1.02) mg/dL Est Cr Clr Drug Dosing TNP Estimated GFR (MDRD) 6 (>60) mL/min BUN/Creatinine Ratio 6.1 L (14-18) Glucose 88 (74-106) mg/dL Lactic Acid 0.8 (0.4-2.0) mmol/L Calcium 9.9 (8.5-10.1) mg/dL Total Bilirubin 0.6 (0.2-1.0) mg/dL AST 19 (15-37) U/L ALT 46 (14-59) U/L Alkaline Phosphatase 93 (46-116) U/L C-Reactive Protein (<1.0) mg/dL NT-Pro-B Natriuret Pep (0-125) pg/mL Total Protein 7.9 (6.4-8.2) g/dl Albumin 3.4 (3.4-5.0) g/dl Globulin 4.5 gm/dL Albumin/Globulin Ratio 0.8 L (1-2) Meds: Medications Discontinued Medications Generic Name Dose Route Start Last Admin Trade Name Freq PRN Reason Stop Dose Admin Albuterol/Ipratropium 3 ml 07/28/19 10:45 07/28/19 10:58 Duoneb 3.0-0.5 Mg/3 Ml NEB 07/28/19 10:46 3 ml ONETIME ONE Administration Cefepime HCl 2 gm/ Premix 50 mls @ 100 mls/hr 07/28/19 13:12 07/28/19 14:03 IV 07/28/19 13:41 100 mls/hr ONETIME ONE Administration Lorazepam 0.5 mg 07/28/19 10:47 07/28/19 11:08 Ativan IVPUSH 07/28/19 10:48 0.5 mg ONETIME ONE Administration Sodium Chloride 10 ml 07/28/19 10:47 07/28/19 11:08 Saline Flush FLUSH 10 ml ASDIRECTED PRN Administration Keep Vein Open - Re-Assessments/Exams Free Text/Narrative Re-Assessment/Exam: 07/28/19 12:30. CXR shows what looks like inifiltrate L lung base strongly suspicious for pneumonia. I have had Dr Clarke, Radiologist read this for verification. Blood culture times one has been drawn, lactate, INR ordered. 2 gram cefepime IV ordered. 07/28/19 14:22. Her vitals do not meet septic alert criteria. She did get some relief of her difficulty breathing after a dual neb. Serum lactate, INR still pending. I will not give a fluid bolus due to underlying CHF, difficulty breathing. White count 9970 C reactive protein 4.1 BNP 16,190 BUN 42 creatinine 6.9 potassium 3.6. She is breathing somewhat more comfortably from arrival but still has labored breathing, continued bilateral wheezing, has pneumonia on top of CHF on top of her renal failure. She needs to be transferred due to being a dialysis patient. Dr Belle, Hospitalist, [facility] accepting Phys. She will be transferred by ground ambulance. 07/28/19 16:00. Lactic acid came back at 0.8. Patient was noted to be breathing more comfortably at time of discharge some time ago. Departure - Departure Time of Disposition: 13:30 Disposition: DC/Tfer to [facility] 02 Condition: Serious Clinical Impression: Hypoxia Pneumonia Qualifiers: Pneumonia type: due to unspecified organism Laterality: left Lung location: lower lobe of lung Qualified Code(s): J18.9 - Pneumonia, unspecified organism Renal failure Qualifiers: Renal failure chronicity: acute on chronic Acute renal failure type: unspecified Chronic kidney disease stage: unspecified stage Qualified Code(s): N17.9 - Acute kidney failure, unspecified - Discharge Information Referrals: PCP,Unknown [Ordering Only Provider] - Forms: ED Department Discharge Sepsis Event Note - Focused Exam Vital Signs: Vital Signs Temp Pulse Resp BP Pulse Ox Pulse Ox 07/28/19 11:04 97.6 F 73 16 162/73 H 98 07/28/19 10:58 99 Date Exam was Performed: 07/28/19 Time Exam was Performed: 17:09 - My Orders Last 24 Hours: My Active Orders 07/28/19 10:45 RT Aerosol Therapy [RC] ASDIRECTED 07/28/19 10:47 Peripheral IV Insertion Adult [OM.PC] Stat 07/28/19 10:48 Peripheral IV Care [RC] . DIRECTED 07/28/19 11:21 EKG 12 Lead [EKG Documentation Completion] [RC] STAT 07/28/19 13:49 CULTURE BLOOD [BC] Stat - Assessment/Plan Last 24 Hours: My Active Orders 07/28/19 10:45 RT Aerosol Therapy [RC] ASDIRECTED 07/28/19 10:47 Peripheral IV Insertion Adult [OM.PC] Stat 07/28/19 10:48 Peripheral IV Care [RC] . DIRECTED 07/28/19 11:21 EKG 12 Lead [EKG Documentation Completion] [RC] STAT 07/28/19 13:49 CULTURE BLOOD [BC] Stat
[2019-07-28 11:14] VITALS: BP 162/73; PULSE 73
--- NOTE | 2019-07-28 12:29 | CR ---
Chest: Portable view of the chest was obtained. Comparison: Previous chest x-ray of 01/03/19. Increased density within the left base is seen. Lungs otherwise are clear. Heart is enlarged. Tortuous thoracic aorta is noted. Bony structures are grossly intact. Impression: 1. Increased density within left lung base suspicious for pneumonia. 2. Other findings within the chest are stable from previous exam. Diagnostic code #3 This report was dictated in [place] Standard Time
[2019-07-28] MEDS ORDERED: Cefepime 2 GM in Premix Bag 1 BAG IV ONE (13:12)
== END 2019-07-28 14:48 ==
LOC: JD.ED 10:19
DX: J18.9 Pneumonia, unspecified organism (principal); R09.02 Hypoxemia; N17.9 Acute kidney failure, unspecified; I11.0 Hypertensive heart disease with heart failure; I50.9 Heart failure, unspecified; E11.9 Type 2 diabetes mellitus without complications; J45.909 Unspecified asthma, uncomplicated; M10.9 Gout, unspecified; Z88.8 Allergy status to other drugs, medicaments and biological substances; Z79.899 Other long term (current) drug therapy; Z86.73 Personal history of transient ischemic attack (TIA), and cerebral infarction without residual deficits
CPT/HCPCS: 36415; 71045; 80053; 83605; 83880; 85025; 85610; 86140; 87040; 87804; 93005; 94640; 96365; 96375; 99285; J0692; J2060; 93010; 99284; J7620-GY

== ENCOUNTER 2019-08-17 11:27 | Emergency (ER) | payer BC, OTHER ==
[2019-08-17] MEDS ORDERED: Sodium Chloride 0.9% 10 ML Syringe FLUSH PRN (12:04)
[2019-08-17] MEDS ORDERED: methylPREDNISolone Sodium Succinate 125 MG/2 ML SDV IVPUSH ONE (12:05)
[2019-08-17] MEDS ORDERED: Albuterol/Ipratropium 3.0-0.5 MG/3 ML Neb Soln NEB ONE ×2 (12:05→14:10)
--- NOTE | 2019-08-17 12:06 | EDM.PDOC ---
<Ragini Negrete - Last Filed: 08/17/19 12:38> ED HPI GENERAL MEDICAL PROBLEM - General Chief Complaint: Respiratory Problem Stated Complaint: COUGHING PAT SENT HER Time Seen by Provider: 08/17/19 11:35 Source of Information: Reports: Patient, Family () History Limitations: Reports: No Limitations - History of Present Illness INITIAL COMMENTS - FREE TEXT/NARRATIVE: Patient is a pleasant 59 year-old female with a history of CKD, HTN, and Hyperlipidemia who presents to the ED with complaints of a productive cough, shortness of breath, and chest pain that started two days ago. She reports that the sputum she coughs up is thick and green. The chest pain is mid sternum and manifests with her cough. She occasionally feels short of breath when she has a coughing episode and when she uses the albuterol inhaler the shortness of breath improves. She has also been taking Mucinex at home. She was recently hospitalized in [place] for pneumonia in July of 2019. She was in the hospital for four days for IV antibiotics. She was discharged on 08/01/2019. She reports that her symptoms resolved and had been feeling better. For her CKD, she goes to dialysis three times per week and her Fur Examiner is in [place], but or her cannot remember the name of the Fur Examiner at this time. Onset: Gradual Duration: Day(s):, Getting Worse Associated Symptoms: Reports: Chest Pain (with cough), Cough, Headaches, Shortness of Breath. Denies: Fever/Chills, Nausea/Vomiting Treatments PT SITTER: Reports: Breathing Treatments (Albuterol inhaler), Other Medication(s) (Mucinex) Chest Pain Score (Numeric/FACES): 10 - Related Data Allergies Allergy/AdvReac Type Severity Reaction Status Date / Time RONI Inhibitors AdvReac Cough Verified 08/17/19 11:39 Home Meds: Home Meds Allopurinol [Zyloprim] 200 mg PO DAILY 11/10/16 [History] Ferrous Sulfate [Iron] 325 mg PO BID 08/28/17 [History] Sevelamer Carbonate [Renvela] 2 tab PO TID 08/28/17 [History] Doxazosin [Cardura] 1 mg PO DAILY 09/06/18 [History] Losartan [Cozaar] 50 mg PO BEDTIME 09/06/18 [History] amLODIPine Besylate [Amlodipine Besylate] 10 mg PO DAILY 07/28/19 [History] Albuterol [Proventil HFA] 2 puff INH TID 08/17/19 [History] Calcium Acetate 2 tab PO TID 08/17/19 [History] Cinacalcet [Sensipar] 90 mg PO DAILY 08/17/19 [History] Metoprolol Tartrate [Lopressor] 50 mg PO BID 08/17/19 [History] guaiFENesin [Mucinex] 600 mg PO BID 08/17/19 [History] predniSONE [Prednisone] 40 mg PO DAILY #10 tablet 08/17/19 [Rx] Past Medical History HEENT History: Reports: Impaired Vision Cardiovascular History: Reports: Heart Murmur, Hypertension Respiratory History: Reports: Asthma, Pneumonia, Recurrent Gastrointestinal History: Reports: None Genitourinary History: Reports: Dialysis, Renal Disease [employer] History: Reports: None Musculoskeletal History: Reports: Gout Neurological History: Reports: TIA Psychiatric History: Reports: None Endocrine/Metabolic History: Reports: Diabetes, Type II Hematologic History: Reports: Other (See Below) Other Hematologic History: AV fistula Immunologic History: Reports: None Oncologic (Cancer) History: Reports: None Dermatologic History: Reports: None - Past Surgical History HEENT Surgical History: Reports: None Respiratory Surgical History: Reports: None Female Surgical History: Reports: None Endocrine Surgical History: Reports: None Neurological Surgical History: Reports: None Musculoskeletal Surgical History: Reports: None Oncologic Surgical History: Reports: None Dermatological Surgical History: Reports: None Social & Family History - Family History Family Medical History: Noncontributory - Tobacco Use Smoking Status *Q: Never Smoker - Caffeine Use Caffeine Use: Reports: None - Recreational Drug Use Recreational Drug Use: No - Living Situation & Occupation Occupation: Unemployed ED [facility] GENERAL - Review of Systems Review Of Systems: See Below Constitutional: Denies: Fever, Chills, Weakness HEENT: Reports: Other (lateral left eye subconjunctival hemorrhage). Denies: Sinus Problem, Throat Pain Respiratory: Reports: Shortness of Breath, Wheezing, Pleuritic Chest Pain, Cough (productive), Sputum (thick green). Denies: Hemoptysis Cardiovascular: Reports: Chest Pain (midsternum with cough). Denies: Edema, Lightheadedness, Syncope GI/Abdominal: Reports: No Symptoms Musculoskeletal: Reports: No Symptoms Skin: Reports: No Symptoms Neurological: Reports: Headache. Denies: Dizziness, Syncope Psychiatric: Reports: No Symptoms ED EXAM, GENERAL - Physical Exam Exam: See Below Exam Limited By: No Limitations General Appearance: Alert, Mild Distress Eye Exam: Left Eye: Conjunctival Injection (subconjunctival hemorrhage of lateral aspect) Ears: Normal Canal, Normal TMs Nose: Normal Inspection, No Blood. No: Nasal Tenderness, Nasal Drainage, Clear Rhinorrhea Throat/Mouth: Normal Inspection Head: Atraumatic, Normocephalic Neck: Normal Inspection, Supple, Non-Tender, Full Range of Motion Respiratory/Chest: Decreased Breath Sounds (bilateral bases), Rhonchi ( bilateral upper lobes), Wheezing (with expiration throughout all lung braun) Cardiovascular: Normal Peripheral Pulses, Regular Rate, Rhythm, No Edema, Other (reproducible chest pain with palpation over sternum region. Dialysis fistula noted over left antecubital- bruit and thrill noted.). No: No Murmur GI/Abdominal: Normal Bowel Sounds, Soft, Non-Tender, No Organomegaly, No Mass Back Exam: Normal Inspection, Full Range of Motion Extremities: Normal Inspection, Normal Range of Motion Neurological: Alert, Oriented, Normal Cognition, No Motor/Sensory Deficits Psychiatric: Normal Affect, Normal Mood Skin Exam: Warm, Dry, Intact, Normal Color, No Rash Lymphatic: No Adenopathy Course - Vital Signs Last Recorded V/S: Last Vital Signs Temp 97.1 F 08/17/19 11:36 Pulse 66 08/17/19 13:18 Resp 20 08/17/19 13:18 BP 163/80 H 08/17/19 13:18 Pulse Ox 89 L 08/17/19 14:50 - Orders/Labs/Meds Orders: Active Orders 24 hr Category Date Time Status Peripheral IV Care [RC] . DIRECTED Care 08/17/19 12:05 Active Chest 2V [CR] Stat Exams 08/17/19 12:04 Taken Sodium Chloride 0.9% [Saline Flush] Med 08/17/19 12:04 Active 10 ml FLUSH ASDIRECTED PRN Peripheral IV Insertion Adult [OM.PC] Stat Oth 08/17/19 12:04 Ordered Medication Orders Sodium Chloride (Saline Flush) 10 ml FLUSH ASDIRECTED PRN PRN Reason: Keep Vein Open Last Admin: 08/17/19 12:13 Dose: 10 ml Labs: Laboratory Tests 08/17/19 08/17/19 08/17/19 Range/Units 11:50 11:50 12:48 WBC 5.46 (3.98-10.04) K/mm3 RBC 2.82 L (3.98-5.22) M/mm3 Hgb 9.3 L (11.2-15.7) gm/dl Hct 30.2 L (34.1-44.9) % MCV 107.1 H D (79.4-94.8) fl MCH 33.0 H (25.6-32.2) pg MCHC 30.8 L (32.2-35.5) g/dl RDW Std Deviation 51.3 H (36.4-46.3) fL Plt Count 259 (182-369) K/mm3 MPV 9.1 L (9.4-12.3) fl Neut % (Auto) 59.2 (34.0-71.1) % Lymph % (Auto) 19.8 (19.3-51.7) % [place] % (Auto) 18.5 H (4.7-12.5) % Eos % (Auto) 1.8 (0.7-5.8) Baso % (Auto) 0.2 (0.1-1.2) % Neut # (Auto) 3.23 (1.56-6.13) K/mm3 Lymph # (Auto) 1.08 L (1.18-3.74) K/mm3 [place] # (Auto) 1.01 H (0.24-0.36) K/mm3 Eos # (Auto) 0.10 (0.04-0.36) K/mm3 Baso # (Auto) 0.01 (0.01-0.08) K/mm3 Manual Slide Review Abnormal smear Sodium 138 (136-145) mEq/L Potassium 4.1 (3.5-5.1) mEq/L Chloride 98 (98-107) mEq/L Carbon Dioxide 30 (21-32) mEq/L Anion Gap 14.1 (5-15) BUN 30 H (7-18) mg/dL Creatinine 7.7 H (0.55-1.02) mg/dL Est Cr Clr Drug Dosing 5.86 mL/min Estimated GFR (MDRD) 5 (>60) mL/min BUN/Creatinine Ratio 3.9 L (14-18) Glucose 108 H (74-106) mg/dL Lactic Acid 1.0 (0.4-2.0) mmol/L Calcium 9.8 (8.5-10.1) mg/dL Total Bilirubin 0.7 (0.2-1.0) mg/dL AST 37 (15-37) U/L ALT 55 (14-59) U/L Alkaline Phosphatase 90 (46-116) U/L Total Protein 8.0 (6.4-8.2) g/dl Albumin 3.2 L (3.4-5.0) g/dl Globulin 4.8 gm/dL Albumin/Globulin Ratio 0.7 L (1-2) Meds: Medications Generic Name Dose Route Start Last Admin Trade Name Freq PRN Reason Stop Dose Admin Sodium Chloride 10 ml 08/17/19 12:04 08/17/19 12:13 Saline Flush FLUSH 10 ml ASDIRECTED PRN Administration Keep Vein Open Discontinued Medications Generic Name Dose Route Start Last Admin Trade Name Freq PRN Reason Stop Dose Admin Albuterol/Ipratropium 3 ml 08/17/19 12:05 08/17/19 12:25 Duoneb 3.0-0.5 Mg/3 Ml NEB 08/17/19 12:06 3 ml ONETIME ONE Administration Albuterol/Ipratropium 3 ml 08/17/19 14:10 08/17/19 14:34 Duoneb 3.0-0.5 Mg/3 Ml NEB 08/17/19 14:11 3 ml ONETIME ONE Administration Methylprednisolone Sodium Succinate 125 mg 08/17/19 12:05 08/17/19 12:13 Solu-Medrol IVPUSH 08/17/19 12:06 125 mg ONETIME ONE Administration Departure - Departure Disposition: Home, Self-Care 01 Clinical Impression: Chronic kidney disease with end stage renal failure on dialysis Asthma exacerbation Qualifiers: Asthma severity: moderate Asthma persistence: unspecified Qualified Code(s): J45.901 - Unspecified asthma with (acute) exacerbation - Discharge Information Prescriptions: predniSONE [Prednisone] 40 mg PO DAILY #10 tablet Referrals: Mavis Clarke MD [Primary Care Provider] - 1 Week Forms: ED Department Discharge Additional Instructions: Take the prednisone 40mg daily for 5 days. Use your inhaler 2 puffs every 4 to 6 hours as needed for wheezing and shortness of breath. Follow up with your doctor within a week. Please return if you are worse. Sepsis Event Note - Evaluation Sepsis Screening Result: No Definite Risk - Focused Exam Vital Signs: Vital Signs Temp Pulse Resp BP Pulse Ox Pulse Ox Pulse Ox 08/17/19 14:50 89 L 08/17/19 14:42 93 L 08/17/19 14:23 98 08/17/19 14:19 100 08/17/19 14:10 100 08/17/19 13:18 66 20 163/80 H 95 08/17/19 12:26 86 L 08/17/19 11:36 97.1 F 67 22 H 163/74 H 90 L Date Exam was Performed: 08/17/19 Time Exam was Performed: 12:38 - My Orders Last 24 Hours: My Active Orders 08/17/19 12:04 Chest 2V [CR] Stat Sodium Chloride 0.9% [Saline Flush] 10 ml FLUSH ASDIRECTED PRN Peripheral IV Insertion Adult [OM.PC] Stat 08/17/19 12:05 Peripheral IV Care [RC] . DIRECTED - Assessment/Plan Last 24 Hours: My Active Orders 08/17/19 12:04 Chest 2V [CR] Stat Sodium Chloride 0.9% [Saline Flush] 10 ml FLUSH ASDIRECTED PRN Peripheral IV Insertion Adult [OM.PC] Stat 08/17/19 12:05 Peripheral IV Care [RC] . DIRECTED <Chin Miller - Last Filed: 08/17/19 15:33> Course - Re-Assessments/Exams Free Text/Narrative Re-Assessment/Exam: 08/17/19 15:25 I examined the patient myself and I agree with Ragini's assessment and plan. I have ordered oxygen, IV saline lock, CXR, labs, duoneb an solu-medrol 125mg IV. Her CXR shows cardiomegaly without any infiltrates. Her WBC is normal. Her Hgb is low at 9.3. Her creatinine is elevated at 7.7. Her BUN is elevated at 30. Her GFR is 5. She is in renal failure on dialysis. Her lactic acid is normal at 1. She had more wheezing so I ordered another duo neb. I do not feel she has pneumonia. She has an asthma exacerbation. I will get her on some prednisone for 5 days and have her continue her inhalers. Departure - Departure Time of Disposition: 15:30 Condition: Good - Discharge Information *PRESCRIPTION DRUG MONITORING PROGRAM REVIEWED*: Not Applicable *COPY OF PRESCRIPTION DRUG MONITORING REPORT IN PATIENT DOUG: Not Applicable Sepsis Event Note - Focused Exam Date Exam was Performed: 08/17/19 Time Exam was Performed: 15:25
[2019-08-17] MEDS ORDERED: Albuterol 0.083% 2.5 MG/3 ML Neb Soln NEB ONE (15:33)
[2019-08-17 16:47] VITALS: BP 147/63; PULSE 69
--- NOTE | 2019-08-18 07:28 | CR ---
Chest: Two views of the chest were obtained. Comparison: Prior chest x-ray of 07/28/19. Heart is enlarged. Tortuous thoracic aorta is seen. Lung markings are increased presumably due to pulmonary vascular congestion. Difficult to exclude superimposed bronchitis. Right hilar prominence is noted. Bony structures are osteopenic. Impression: 1. Cardiomegaly with increased central lung markings mostly representing pulmonary vascular congestion from CHF. Difficult to exclude superimposed infectious bronchitis. 2. Prominent right hilum most likely due to overlapping vascular markings. Diagnostic code #3 This report was dictated in [place] Standard Time
== END 2019-08-17 16:12 | disposition home or self-care (01) ==
LOC: JD.ED 11:27
DX: J45.901 Unspecified asthma with (acute) exacerbation (principal); E11.22 Type 2 diabetes mellitus with diabetic chronic kidney disease; I12.0 Hypertensive chronic kidney disease with stage 5 chronic kidney disease or end stage renal disease; N18.6 End stage renal disease; Z88.8 Allergy status to other drugs, medicaments and biological substances; Z99.2 Dependence on renal dialysis; Z79.52 Long term (current) use of systemic steroids; Z79.899 Other long term (current) drug therapy
CPT/HCPCS: 36415; 71046; 80053; 83605; 85025; 94640; 96374; 99285; J2930; 99284; J7620-GY

== ENCOUNTER 2019-12-05 09:35 | Emergency (ER) | payer BC, OTHER ==
[2019-12-05 09:57] VITALS: BP 158/72; PULSE 64
--- NOTE | 2019-12-05 10:41 | EDM.PDOC ---
<RenuSofi - Last Filed: 12/05/19 12:23> ED HPI GENERAL MEDICAL PROBLEM - General Chief Complaint: Abdominal Pain Stated Complaint: ABDOMINAL PAIN Time Seen by Provider: 12/05/19 10:06 Source of Information: Reports: Patient History Limitations: Reports: No Limitations - History of Present Illness INITIAL COMMENTS - FREE TEXT/NARRATIVE: Mrs. Hogan is a pleasant 59 year old woman with a past medical history significant for Renal Failure, dialysis, and HTN, who now presents to the ED with complaints of intermittent LLQ pain. She states that she will have stabbing LLQ pain which is followed and relieved by a small hard BM. The LLQ pain started Thursday, December 03, 2019. She reports yesterday she had 4 to 5 LLQ pain followed by small hard stool. She does not feel as if the pain is related to eating. She states the pain is worse when sitting upright and better when recumbent. She has been taking an OTC pain reliever, unsure of which one, that has not been helping. Here in the ED, the patient's is hemodynamically stable at 163/73, afebrile, saturating 97% on room air. The patient's last dialysis was Thursday and her next dialysis session is Thursday. The patient denies recent fever, chills, nausea, vomiting, diarrhea. Patient's PCP is Dr. Clarke. Onset Date: 12/03/19 Location: Reports: Abdomen (LLQ) Left Abdomen Pain Score (Numeric/FACES): 8 - Related Data Allergies Allergy/AdvReac Type Severity Reaction Status Date / Time RONI Inhibitors AdvReac Cough Verified 08/17/19 11:39 Home Meds: Home Meds Acetaminophen [Pain Relief] 650 mg PO TUTHSA PRN 12/05/19 [History] Albuterol Sulfate [Proventil Hfa] 2 puff INH TID 12/05/19 [History] Allopurinol [Zyloprim] 200 mg PO DAILY 12/05/19 [History] Cinacalcet [Sensipar] 60 mg PO DAILY 12/05/19 [History] Doxazosin [Doxazosin Mesylate] 1 mg PO DAILY 12/05/19 [History] Losartan [Cozaar] 50 mg PO DAILY 12/05/19 [History] Metoprolol Tartrate 50 mg PO BID 12/05/19 [History] Sevelamer Carbonate [Renvela] 2,400 mg PO TIDMEALS 12/05/19 [History] Zolpidem Tartrate [Ambien] 5 mg PO BEDTIME 12/05/19 [History] amLODIPine [Norvasc] 10 mg PO DAILY 12/05/19 [History] diphenhydrAMINE HCL [Benadryl] 25 mg PO ONETIME PRN 12/05/19 [History] guaiFENesin [Mucinex] 600 mg PO Q12HR 12/05/19 [History] Past Medical History HEENT History: Reports: Impaired Vision Cardiovascular History: Reports: Heart Murmur, Hypertension Respiratory History: Reports: Asthma, Pneumonia, Recurrent Genitourinary History: Reports: Dialysis, Renal Disease Musculoskeletal History: Reports: Gout Neurological History: Reports: TIA Endocrine/Metabolic History: Reports: Diabetes, Type II Hematologic History: Reports: Other (See Below) Other Hematologic History: AV fistula - Past Surgical History HEENT Surgical History: Reports: None, Laser Surgery Cardiovascular Surgical History: Reports: Other (See Below) Other Cardiovascular Surgeries/Procedures: left ext. AV fistual Social & Family History - Family History Family Medical History: Noncontributory - Tobacco Use Smoking Status *Q: Never Smoker Second Hand Smoke Exposure: No - Caffeine Use Caffeine Use: Reports: None - Living Situation & Occupation Occupation: Unemployed ED ROS GENERAL - Review of Systems Review Of Systems: See Below Constitutional: Denies: Fever, Chills, Weakness, Decreased Appetite HEENT: Reports: No Symptoms Respiratory: Denies: Shortness of Breath, Wheezing, Pleuritic Chest Pain, Cough Cardiovascular: Denies: Chest Pain, Edema Endocrine: Denies: Fatigue GI/Abdominal: Reports: Abdominal Pain, Constipation (Had 4 to 5 small hard stool yesterday). Denies: Bloody Stool, Diarrhea, Decreased Appetite, Nausea, Stool Incontinence : Reports: No Symptoms Musculoskeletal: Reports: No Symptoms Skin: Reports: No Symptoms Neurological: Denies: Confusion, Dizziness, Headache, Syncope, Weakness Psychiatric: Denies: No Symptoms Hematologic/Lymphatic: Reports: No Symptoms Immunologic: Reports: No Symptoms ED EXAM, GI/ABD - Physical Exam Exam: See Below Exam Limited By: No Limitations General Appearance: Alert, WD/WN, No Apparent Distress, Other (T: 98.2 P: 64 Resp:16 B/P 158/72 SpO2 97%) Eyes: Bilateral: Normal Appearance, EOMI Ears: Normal External Exam, Hearing Grossly Normal Nose: Normal Inspection Throat/Mouth: Normal Inspection, Normal Voice, No Airway Compromise Head: Atraumatic, Normocephalic Neck: Normal Inspection Respiratory/Chest: No Respiratory Distress, Lungs Clear, Normal Breath Sounds, No Accessory Muscle Use, Chest Non-Tender Cardiovascular: Normal Peripheral Pulses, Regular Rate, Rhythm, No Edema, No Gallop, No JVD, No Murmur, No Rub GI/Abdominal Exam: Soft, No Organomegaly, No Distention, No Abnormal Bruit, No Mass, Pelvis Stable, Tender (Epigastric), Other (hyperactive bowel sounds). No : Non-Tender (Female) Exam: Deferred Rectal (Female) Exam: Deferred Back Exam: Normal Inspection Extremities: Normal Inspection, Normal Range of Motion, Non-Tender, No Pedal Edema, Normal Capillary Refill, Other (left arm with AV fistula) Neurological: Alert, Oriented, Normal Cognition Psychiatric: Normal Affect, Normal Mood Skin Exam: Warm, Dry, Intact, Normal Color, No Rash Lymphatic: No Adenopathy Course - Vital Signs Last Recorded V/S: Last Vital Signs Temp 98.2 F 12/05/19 09:52 Pulse 64 12/05/19 09:52 Resp 16 12/05/19 09:52 BP 158/72 H 12/05/19 09:52 Pulse Ox 97 12/05/19 09:52 - Orders/Labs/Meds Labs: Laboratory Tests 12/05/19 12/05/19 12/05/19 Range/Units 10:55 10:55 10:55 WBC 10.64 H (3.98-10.04) K/mm3 RBC 3.47 L (3.98-5.22) M/mm3 Hgb 11.3 D (11.2-15.7) gm/dl Hct 34.9 (34.1-44.9) % MCV 100.6 H D (79.4-94.8) fl MCH 32.6 H (25.6-32.2) pg MCHC 32.4 (32.2-35.5) g/dl RDW Std Deviation 47.2 H (36.4-46.3) fL Plt Count 209 (182-369) K/mm3 MPV 9.4 (9.4-12.3) fl Neutrophils % (Manual) 72 H (40-60) % Band Neutrophils % 0 (0-10) % Lymphocytes % (Manual) 14 L (20-40) % Atypical Lymphs % 0 % Monocytes % (Manual) 9 (2-10) % Eosinophils % (Manual) 4 (0.7-5.8) % Basophils % (Manual) 1 (0.1-1.2) Platelet Estimate Adequate Hypochromasia 2+ moderate Anisocytosis 1+ slight Microcytosis 2+ moderate RBC Morph Comment Abnormal Sodium 138 (136-145) mEq/L Potassium 4.8 (3.5-5.1) mEq/L Chloride 98 (98-107) mEq/L Carbon Dioxide 29 (21-32) mEq/L Anion Gap 15.8 H (5-15) BUN 69 H D (7-18) mg/dL Creatinine 9.0 H D (0.55-1.02) mg/dL Est Cr Clr Drug Dosing 4.77 mL/min Estimated GFR (MDRD) 4 (>60) mL/min BUN/Creatinine Ratio 7.7 L (14-18) Glucose 104 (74-106) mg/dL Calcium 7.7 L D (8.5-10.1) mg/dL Total Bilirubin 0.3 (0.2-1.0) mg/dL AST 24 (15-37) U/L ALT 39 (14-59) U/L Alkaline Phosphatase 143 H (46-116) U/L C-Reactive Protein 1.0 (<1.0) mg/dL Total Protein 7.4 (6.4-8.2) g/dl Albumin 3.2 L (3.4-5.0) g/dl Globulin 4.2 gm/dL Albumin/Globulin Ratio 0.8 L (1-2) Lipase 556 H (73-393) U/L - Re-Assessments/Exams Free Text/Narrative Re-Assessment/Exam: 12/05/19 10:36 As above, the patient is her for intermittent LLQ pain that is relieved after having a BM. Ordered labs, and a flat and upright. No CT ordered at this time due to patient's renal status of requiring dialysis. 12/05/19 11:48 12/05/19 12:07 The patient's WBC is elevate at 10.64, neutrophils 72, bands 0. Her lipase is elevated at 556 . Her CRP is vincent at 1.0. No infection suspected. Her Flat and Up Right is unremarkable. Pending formal reading per Radiologist. We will advised a bland diet and follow up with her PCP on Thursday or . Departure - Departure Disposition: Home, Self-Care 01 Clinical Impression: Abdominal pain - Discharge Information Instructions: Abdominal Pain, Adult, [id number] Referrals: Mavis Clarke MD [Primary Care Provider] - Forms: ED Department Discharge Additional Instructions: rest, clear liquids and very bland diet as tolerated for now. Your lipase blood test was very mildly elevated so that will need to be watched carefully. That can be a marker pancreatic inflamation. Avoid spicy, fatty, fried foods for now. Continue dialysis as scheduled. Try see Dr Clarke in 2 to 3 days for recheck. Call tomorrow AM for appointment. Sepsis Event Note - Evaluation Sepsis Screening Result: No Definite Risk - Focused Exam Vital Signs: Vital Signs Temp Pulse Resp BP Pulse Ox 12/05/19 09:52 98.2 F 64 16 158/72 H 97 Date Exam was Performed: 12/05/19 Time Exam was Performed: 12:23 <Farhat Flood - Last Filed: 12/05/19 13:06> Course - Re-Assessments/Exams Free Text/Narrative Re-Assessment/Exam: 12/05/19 13:05 Initial hx and exam was done by Yaritza Sears, I agree with her hx and exam as documented. I have also interviewed and examined patient. Discharge instr. as documented. Departure - Departure Time of Disposition: 12:19 Condition: Fair Sepsis Event Note - Focused Exam Date Exam was Performed: 12/05/19 Time Exam was Performed: 13:04
--- NOTE | 2019-12-05 11:44 | CR ---
Abdomen: Supine and upright views of the abdomen were obtained. Comparison: No prior abdominal x-ray is available. Vascular calcification is seen. Bowel gas pattern is felt to be within normal limits. Bony structures show nothing acute. Vascular calcification is seen. Calcifications are noted within the pelvis having the appearance of phleboliths. No free air is identified. Impression: 1. Findings as noted above. 2. Nothing acute is appreciated on 2 view abdominal x-ray. Diagnostic code #2 This report was dictated in MDT
== END 2019-12-05 12:35 | disposition home or self-care (01) ==
LOC: JD.ED 09:35
DX: R10.32 Left lower quadrant pain (principal); I10 Essential (primary) hypertension; J45.909 Unspecified asthma, uncomplicated; M10.9 Gout, unspecified; E11.9 Type 2 diabetes mellitus without complications; Z86.73 Personal history of transient ischemic attack (TIA), and cerebral infarction without residual deficits; Z88.8 Allergy status to other drugs, medicaments and biological substances
CPT/HCPCS: 36415; 74019; 74019-26; 80053; 83690; 85007; 85027; 86140; 99282; 99284-25

== ENCOUNTER 2020-03-20 07:48 | Emergency (ER) | payer BC, OTHER, SELFPAY ==
[2020-03-20] MEDS ORDERED: Sodium Bicarbonate 8.4% 50 MEQ/50 ML Syringe ONE (08:00)
[2020-03-20 08:08] VITALS: BP 148/63; PULSE 31
[2020-03-20] MEDS ORDERED: Sodium Chloride 0.9% 10 ML Syringe FLUSH PRN (08:08)
[2020-03-20] MEDS ORDERED: Calcium Gluconate 10% 1 GM/10 ML SDV IVPUSH ONE ×2 (08:13→09:03)
[2020-03-20] MEDS ORDERED: Sodium Bicarbonate 8.4% 50 MEQ/50 ML Syringe IVPUSH ONE ×2 (08:14→09:04)
[2020-03-20] MEDS ORDERED: Insulin Regular, Human 100 Units/ML 3 ML Vial IVPUSH ONE ×2 (08:15→09:04)
--- NOTE | 2020-03-20 08:24 | EDM.PDOC ---
ED HPI GENERAL MEDICAL PROBLEM - General Chief Complaint: Respiratory Problem Stated Complaint: RESPIRATORY DISTRESS Time Seen by Provider: 03/20/20 08:03 Source of Information: Reports: Patient, RN Notes Reviewed - History of Present Illness INITIAL COMMENTS - FREE TEXT/NARRATIVE: 59 yr old female comes over from dialysis after presenting to dialysis feeling short of breath. That started yesterday, worse during the night and this morning. Has not been coughing. No fever or chills. No chest pain. Last dialysis run 3 days ago. Breathing is worse to lie flat. On arrival to ED found to be in a junctional escape rythm, rate in the 30's. Hx chronic renal failure. Has been on dialysis for some time. - Related Data Allergies Allergy/AdvReac Type Severity Reaction Status Date / Time RONI Inhibitors AdvReac Cough Verified 03/20/20 08:08 Home Meds: Home Meds Acetaminophen [Pain Relief] 650 mg PO TUTHSA PRN 12/05/19 [History] Albuterol Sulfate [Proventil Hfa] 2 puff INH TID 12/05/19 [History] Allopurinol [Zyloprim] 200 mg PO DAILY 12/05/19 [History] Cinacalcet [Sensipar] 60 mg PO DAILY 12/05/19 [History] Doxazosin [Doxazosin Mesylate] 1 mg PO DAILY 12/05/19 [History] Losartan [Cozaar] 50 mg PO DAILY 12/05/19 [History] Metoprolol Tartrate 50 mg PO BID 12/05/19 [History] Sevelamer Carbonate [Renvela] 2,400 mg PO TIDMEALS 12/05/19 [History] Zolpidem Tartrate [Ambien] 5 mg PO BEDTIME 12/05/19 [History] amLODIPine [Norvasc] 10 mg PO DAILY 12/05/19 [History] diphenhydrAMINE HCL [Benadryl] 25 mg PO ONETIME PRN 12/05/19 [History] guaiFENesin [Mucinex] 600 mg PO Q12HR 12/05/19 [History] Past Medical History HEENT History: Reports: Impaired Vision Cardiovascular History: Reports: Heart Murmur, Hypertension Respiratory History: Reports: Asthma, Pneumonia, Recurrent Gastrointestinal History: Reports: None Genitourinary History: Reports: Dialysis, Renal Disease TECHNOLOGY SPECIALIST History: Reports: None Musculoskeletal History: Reports: Gout Neurological History: Reports: TIA Psychiatric History: Reports: None Endocrine/Metabolic History: Reports: Diabetes, Type II Hematologic History: Reports: Other (See Below) Other Hematologic History: AV fistula Immunologic History: Reports: None Oncologic (Cancer) History: Reports: None Dermatologic History: Reports: None - Past Surgical History HEENT Surgical History: Reports: None, Laser Surgery Cardiovascular Surgical History: Reports: Other (See Below) Other Cardiovascular Surgeries/Procedures: left ext. AV fistual Oncologic Surgical History: Reports: None Dermatological Surgical History: Reports: None Social & Family History - Family History Family Medical History: Noncontributory - Tobacco Use Smoking Status *Q: Never Smoker - Caffeine Use Caffeine Use: Reports: None - Living Situation & Occupation Occupation: Unemployed ED ROS GENERAL - Review of Systems Review Of Systems: See Below Constitutional: Denies: Fever, Chills HEENT: Reports: No Symptoms Respiratory: Reports: Shortness of Breath Cardiovascular: Reports: Lightheadedness. Denies: Chest Pain Endocrine: Reports: Fatigue Musculoskeletal: Denies: Shoulder Pain, Arm Pain Skin: Reports: No Symptoms Neurological: Reports: Dizziness, Difficulty Walking, Weakness ED EXAM, GENERAL - Physical Exam Exam: See Below General Appearance: Alert, Mild Distress Eye Exam: Bilateral Eye: PERRL Head: Atraumatic Neck: Supple, Other (No JVD) Respiratory/Chest: No Respiratory Distress, Lungs Clear, Normal Breath Sounds Cardiovascular: Bradycardia GI/Abdominal: Soft, Non-Tender Back Exam: No: CVA Tenderness (L), CVA Tenderness (R) Extremities: Normal Inspection. No: Pedal Edema, Leg Pain, Redness Neurological: Alert, Oriented, No Motor/Sensory Deficits Skin Exam: Warm, Dry, Normal Color EKG INTERPRETATION EKG Date: 03/20/20 Rhythm: Other (complete heart block with vent. escape, rate low 30's) P-Wave: Absent QRS: Other (mildly wide) ST-T: Other (large t waves) Course - Vital Signs Last Recorded V/S: Last Vital Signs Temp 97.6 F 03/20/20 08:04 Pulse 31 L 03/20/20 08:04 Resp 20 03/20/20 08:04 BP 148/63 H 03/20/20 08:04 Pulse Ox 96 03/20/20 08:04 - Orders/Labs/Meds Orders: Active Orders 24 hr Category Date Time Status Peripheral IV Insertion Adult [OM.PC] Stat Oth 03/20/20 08:09 Ordered Labs: Laboratory Tests 03/20/20 03/20/20 03/20/20 Range/Units 08:10 08:10 08:10 WBC 12.88 H (3.98-10.04) K/mm3 RBC 3.74 L (3.98-5.22) M/mm3 Hgb 12.0 (11.2-15.7) gm/dl Hct 38.5 (34.1-44.9) % MCV 102.9 H (79.4-94.8) fl MCH 32.1 (25.6-32.2) pg MCHC 31.2 L (32.2-35.5) g/dl RDW Std Deviation 50.9 H (36.4-46.3) fL Plt Count 241 (182-369) K/mm3 MPV 9.6 (9.4-12.3) fl Neut % (Auto) 81.9 H (34.0-71.1) % Lymph % (Auto) 13.0 L (19.3-51.7) % Deuel % (Auto) 3.6 L (4.7-12.5) % Eos % (Auto) 0.9 (0.7-5.8) Baso % (Auto) 0.4 (0.1-1.2) % Neut # (Auto) 10.55 H (1.56-6.13) K/mm3 Lymph # (Auto) 1.67 (1.18-3.74) K/mm3 Deuel # (Auto) 0.47 H (0.24-0.36) K/mm3 Eos # (Auto) 0.11 (0.04-0.36) K/mm3 Baso # (Auto) 0.05 (0.01-0.08) K/mm3 Sodium 131 L (136-145) mEq/L Potassium 8.9 H* D (3.5-5.1) mEq/L Chloride 96 L (98-107) mEq/L Carbon Dioxide 21 (21-32) mEq/L Anion Gap 22.9 H (5-15) BUN 83 H (7-18) mg/dL Creatinine 11.5 H D (0.55-1.02) mg/dL Est Cr Clr Drug Dosing 3.74 mL/min Estimated GFR (MDRD) 3 (>60) mL/min BUN/Creatinine Ratio 7.2 L (14-18) Glucose 243 H (74-106) mg/dL POC Glucose (70-105) mg/dL Calcium 9.5 D (8.5-10.1) mg/dL Total Bilirubin 0.5 (0.2-1.0) mg/dL AST 35 (15-37) U/L ALT 52 (14-59) U/L Alkaline Phosphatase 97 (46-116) U/L Troponin I (0.00-0.056) ng/mL NT-Pro-B Natriuret Pep 9743 H (0-125) pg/mL Total Protein 7.6 (6.4-8.2) g/dl Albumin 3.4 (3.4-5.0) g/dl Globulin 4.2 gm/dL Albumin/Globulin Ratio 0.8 L (1-2) 03/20/20 03/20/20 03/20/20 Range/Units 08:10 08:13 09:32 WBC (3.98-10.04) K/mm3 RBC (3.98-5.22) M/mm3 Hgb (11.2-15.7) gm/dl Hct (34.1-44.9) % MCV (79.4-94.8) fl MCH (25.6-32.2) pg MCHC (32.2-35.5) g/dl RDW Std Deviation (36.4-46.3) fL Plt Count (182-369) K/mm3 MPV (9.4-12.3) fl Neut % (Auto) (34.0-71.1) % Lymph % (Auto) (19.3-51.7) % Deuel % (Auto) (4.7-12.5) % Eos % (Auto) (0.7-5.8) Baso % (Auto) (0.1-1.2) % Neut # (Auto) (1.56-6.13) K/mm3 Lymph # (Auto) (1.18-3.74) K/mm3 Deuel # (Auto) (0.24-0.36) K/mm3 Eos # (Auto) (0.04-0.36) K/mm3 Baso # (Auto) (0.01-0.08) K/mm3 Sodium (136-145) mEq/L Potassium 8.4 H* (3.5-5.1) mEq/L Chloride (98-107) mEq/L Carbon Dioxide (21-32) mEq/L Anion Gap (5-15) BUN (7-18) mg/dL Creatinine (0.55-1.02) mg/dL Est Cr Clr Drug Dosing mL/min Estimated GFR (MDRD) (>60) mL/min BUN/Creatinine Ratio (14-18) Glucose (74-106) mg/dL POC Glucose 231 H (70-105) mg/dL Calcium (8.5-10.1) mg/dL Total Bilirubin (0.2-1.0) mg/dL AST (15-37) U/L ALT (14-59) U/L Alkaline Phosphatase (46-116) U/L Troponin I 0.018 (0.00-0.056) ng/mL NT-Pro-B Natriuret Pep (0-125) pg/mL Total Protein (6.4-8.2) g/dl Albumin (3.4-5.0) g/dl Globulin gm/dL Albumin/Globulin Ratio (1-2) 03/20/20 03/20/20 03/20/20 Range/Units 09:54 10:34 16:40 WBC (3.98-10.04) K/mm3 RBC (3.98-5.22) M/mm3 Hgb (11.2-15.7) gm/dl Hct (34.1-44.9) % MCV (79.4-94.8) fl MCH (25.6-32.2) pg MCHC (32.2-35.5) g/dl RDW Std Deviation (36.4-46.3) fL Plt Count (182-369) K/mm3 MPV (9.4-12.3) fl Neut % (Auto) (34.0-71.1) % Lymph % (Auto) (19.3-51.7) % Deuel % (Auto) (4.7-12.5) % Eos % (Auto) (0.7-5.8) Baso % (Auto) (0.1-1.2) % Neut # (Auto) (1.56-6.13) K/mm3 Lymph # (Auto) (1.18-3.74) K/mm3 Deuel # (Auto) (0.24-0.36) K/mm3 Eos # (Auto) (0.04-0.36) K/mm3 Baso # (Auto) (0.01-0.08) K/mm3 Sodium (136-145) mEq/L Potassium 9.0 H* 3.9 (3.5-5.1) mEq/L Chloride (98-107) mEq/L Carbon Dioxide (21-32) mEq/L Anion Gap (5-15) BUN (7-18) mg/dL Creatinine (0.55-1.02) mg/dL Est Cr Clr Drug Dosing mL/min Estimated GFR (MDRD) (>60) mL/min BUN/Creatinine Ratio (14-18) Glucose (74-106) mg/dL POC Glucose 228 H (70-105) mg/dL Calcium (8.5-10.1) mg/dL Total Bilirubin (0.2-1.0) mg/dL AST (15-37) U/L ALT (14-59) U/L Alkaline Phosphatase (46-116) U/L Troponin I (0.00-0.056) ng/mL NT-Pro-B Natriuret Pep (0-125) pg/mL Total Protein (6.4-8.2) g/dl Albumin (3.4-5.0) g/dl Globulin gm/dL Albumin/Globulin Ratio (1-2) Meds: Medications Discontinued Medications Generic Name Dose Route Start Last Admin Trade Name Giovanyq PRN Reason Stop Dose Admin Calcium Gluconate 1 gm 03/20/20 08:13 03/20/20 08:27 Calcium Gluconate IVPUSH 03/20/20 08:14 1 gm ONETIME ONE Administration Calcium Gluconate 1 gm 03/20/20 09:03 03/20/20 09:03 Calcium Gluconate IVPUSH 03/20/20 09:04 1 gm ONETIME ONE Administration Dextrose/Water 25 ml 03/20/20 09:06 03/20/20 09:14 Dextrose 50% In Water IVPUSH 03/20/20 09:07 25 ml ASDIRECTED ONE Administration Amiodarone HCl/Dextrose 100 mls @ 600 mls/hr 03/20/20 10:30 03/20/20 10:30 Nexterone In Dextrose 150 Mg/100 Ml IV 03/20/20 10:39 600 mls/hr .BOLUS ONE Administration Protocol Amiodarone HCl/Dextrose 360 mg in 200 mls @ 33.333 mls/hr 03/20/20 11:00 03/20/20 10:55 Nexterone In Dextrose 360 Mg/200 Ml IV 33.333 mls/hr ASDIRECTED SANA Administration Protocol Insulin Human Regular 3 unit 03/20/20 08:15 03/20/20 08:23 Humulin R IVPUSH 03/20/20 08:16 3 unit ONETIME ONE Administration Protocol Insulin Human Regular 2 unit 03/20/20 09:04 03/20/20 09:09 Humulin R IVPUSH 03/20/20 09:05 2 unit ONETIME ONE Administration Protocol Ondansetron HCl 4 mg 03/20/20 09:15 03/20/20 09:20 Zofran IVPUSH 03/20/20 09:16 4 mg ONETIME ONE Administration Sodium Bicarbonate 50 meq 03/20/20 08:14 03/20/20 08:25 Sodium Bicarbonate 8.4% IVPUSH 03/20/20 08:15 50 meq ONETIME ONE Administration Sodium Bicarbonate 50 meq 03/20/20 09:04 03/20/20 09:10 Sodium Bicarbonate 8.4% IVPUSH 03/20/20 09:05 50 meq ONETIME ONE Administration Sodium Chloride 10 ml 03/20/20 08:08 03/20/20 08:35 Saline Flush FLUSH 10 ml ASDIRECTED PRN Administration Keep Vein Open - Re-Assessments/Exams Free Text/Narrative Re-Assessment/Exam: 03/20/20 08:35. Last dialysis run 3 days ago, dyspnea yesterday, worse today, EKG, cardiac moniter showing complete heart block, junctional escape, rate in the 30's. Good BP. Strong concern for hyperkalemia, appropriate labs ordered, have started treating for hyperkalemia, 1 gram glucagon IV, 1 amp Na bicarb IV, 3 units insulin IV, glucose about 230. CXR shows mild pul. william. 09:05. K+8.9. Rythm starting to improve, narrow complex, rate now in the 40's, more regular. will give 1 more amp bicarb, antoher 2 units insulin IV, 1/2 amp D50. 09:15. nauseated, will give zofran IV, have lab draw for repeat K+, repeat EKG, get over to dialysis [facility]. 10:10. dialysis unable to take patient, apparently someone else got her slot, they can take her at 12:30., That is much too long to wait, I visited with them. They than agreed for 12 noon. 03/20/20 11:00. Pt went into V tach sometime in the last hour shortly after above conversation with dialysis. Rate around 200 with weak pulse, remained awake but drowsy. We cardioverted with 100 joule, synchronized. She went back into junctional escape rythm, rate of about 30, BP in the 120's. Dialysis can take her at this time. 13:00. Narrow complex rythm with p waves, rate in the 40's, reported to be doing well. 15:00 Have communicated with dialysis, they are going to recheck a K+ end of run, report that she has been eating a lot of tomatoes and other vegetables over the weekend. 16:30. K+ reported to be 2.6. Dialysis staff checked with one of the [facility]. He is not worried, states she can go home. It would be expected that she will equilibrate to a higher level over the next few hours. 03/20/20 19:38. Critical care time 90 minutes. This includes initial eval of patient, continued monitering of patient, order of labs, CXR, EKG's. Treatment of suspected hyperkalemia, treatment of confirmed hyperkalemia, cardioversion of VTach. Ordering of Amiodarone, amiodarone drip. Continued monitering of patient. Documentation of all of the above. Departure - Departure Time of Disposition: 16:30 Disposition: Home, Self-Care 01 Condition: Critical Clinical Impression: Hyperkalemia Renal failure Qualifiers: Renal failure chronicity: acute on chronic Acute renal failure type: unspecified Chronic kidney disease stage: unspecified stage Qualified Code(s): N17.9 - Acute kidney failure, unspecified - Discharge Information Referrals: Mavis Clarke MD [Primary Care Provider] - Forms: ED Department Discharge Sepsis Event Note (ED) - Evaluation Sepsis Screening Result: No Definite Risk - Focused Exam Vital Signs: Vital Signs Temp Pulse Resp BP Pulse Ox 03/20/20 08:04 97.6 F 31 L 20 148/63 H 96 - My Orders Last 24 Hours: My Active Orders 03/20/20 08:09 Peripheral IV Insertion Adult [OM.PC] Stat - Assessment/Plan Last 24 Hours: My Active Orders 03/20/20 08:09 Peripheral IV Insertion Adult [OM.PC] Stat
--- NOTE | 2020-03-20 08:47 | CR ---
Chest: Portable view of the chest was obtained. Comparison: Previous chest x-ray of 07/28/19. Heart is felt to be slightly enlarged. Pulmonary vessels are mildly increased from prior exam. Lungs otherwise are clear. Bony structures are grossly intact. Impression: 1. Cardiomegaly and mild pulmonary vascular congestion. Findings could represent mild CHF versus fluid overload. Diagnostic code #3 This report was dictated in MDT
[2020-03-20] MEDS ORDERED: 50% Dextrose in Water 50 ML Syringe IVPUSH ONE (09:06)
[2020-03-20] MEDS ORDERED: Ondansetron 4 MG/2 ML SDV IVPUSH ONE (09:15)
--- NOTE | 2020-03-20 11:08 | PCM.SN.2 ---
- Free Text/Narrative Note: Anesthesia Note: Code Blue response noted with patient awake and responsive. Patient's Chief Complaint: Elevated potassium with patient requiring dialysis treatment. Dr. Flood at bedside managing patient. Oxygen noted via nasal cannula, suggestion made to place on non-rebreather mask, O2 sat= 90-94%. Heart rhythm initially when SOD FARMER arrived bradycardia in the 30's, amiodorone drip started and heart rate = 100. 20 gauge to right inner wrist started times one, with lab sample given. Thank you! Nohemi SOD FARMER
== END 2020-03-20 11:05 | disposition home or self-care (01) ==
LOC: JD.ED 07:48
DX: N17.9 Acute kidney failure, unspecified (principal); I12.9 Hypertensive chronic kidney disease with stage 1 through stage 4 chronic kidney disease, or unspecified chronic kidney disease; N18.9 Chronic kidney disease, unspecified; E11.22 Type 2 diabetes mellitus with diabetic chronic kidney disease; M10.9 Gout, unspecified; E87.5 Hyperkalemia; I47.2 Ventricular tachycardia; Z86.73 Personal history of transient ischemic attack (TIA), and cerebral infarction without residual deficits; J45.909 Unspecified asthma, uncomplicated; Z79.899 Other long term (current) drug therapy; Z88.8 Allergy status to other drugs, medicaments and biological substances
CPT/HCPCS: 36415; 71045; 80053; 82962; 83880; 84132; 84484; 85025; 92960; 93005; 96374; 96375; 96376; 99291; J0282; J0610; J1815; J2405; 93010; 99284

== ENCOUNTER 2020-09-29 13:31 | Emergency (ER) | payer BC ==
[2020-09-29 13:45] VITALS: BP 191/68; PULSE 70
[2020-09-29] MEDS ORDERED: Sodium Chloride 0.9% 10 ML Syringe FLUSH PRN (13:54)
--- NOTE | 2020-09-29 14:02 | EDM.PDOC ---
ED HPI GENERAL MEDICAL PROBLEM - General Chief Complaint: Respiratory Problem Stated Complaint: COUGH Time Seen by Provider: 09/29/20 13:43 Source of Information: Reports: Patient History Limitations: Reports: No Limitations - History of Present Illness INITIAL COMMENTS - FREE TEXT/NARRATIVE: 60 year old female who presents with severe cough and SOB x 2 weeks and a 1 week history of fever and chills. Of note the patient is a dialysis patient and had dialysis just prior to arrival. Pt denies a history of covid and states that she had the Nhan and Nhan vaccine 3 weeks ago. Pt states that she has a history of asthma and has had to use her rescue inhaler three times daily. States that she does still make urine and has denied any issues with dysuria or frequency. - Related Data Allergies Allergy/AdvReac Type Severity Reaction Status Date / Time RONI Inhibitors AdvReac Cough Verified 09/29/20 13:43 Home Meds: Home Meds Albuterol Sulfate [Proventil Hfa] 2 puff INH Q6H PRN 12/05/19 [History] Allopurinol [Zyloprim] 200 mg PO DAILY 12/05/19 [History] Doxazosin [Doxazosin Mesylate] 1 mg PO DAILY 12/05/19 [History] Losartan [Cozaar] 50 mg PO DAILY 12/05/19 [History] Metoprolol Tartrate 25 mg PO BID 12/05/19 [History] Sevelamer Carbonate [Renvela] 2,400 mg PO TIDMEALS 12/05/19 [History] Zolpidem Tartrate [Ambien] 5 mg PO BEDTIME PRN 12/05/19 [History] amLODIPine [Norvasc] 10 mg PO DAILY 12/05/19 [History] Calcitriol 0.5 mcg PO MOWEFR 09/29/20 [History] Doxycycline [Vibra-Tabs] 100 mg PO BID #14 tab 09/29/20 [Rx] Fluticasone/Vilanterol [Breo Ellipta 100-25 MCG Inhalation Kit] 1 puff IH DAILY 09/29/20 [History] Melatonin 3 mg PO BEDTIME 09/29/20 [History] Sevelamer Carbonate [Renvela] 800 mg PO DAILY 09/29/20 [History] predniSONE 20 mg PO WITHBREAKFAST #5 tab 09/29/20 [Rx] Past Medical History HEENT History: Reports: Impaired Vision Cardiovascular History: Reports: Heart Murmur, Hypertension Respiratory History: Reports: Asthma, Pneumonia, Recurrent Gastrointestinal History: Reports: None Genitourinary History: Reports: Dialysis, Renal Disease WINDSCREEN FITTER History: Reports: None Musculoskeletal History: Reports: Gout Neurological History: Reports: TIA Psychiatric History: Reports: None Endocrine/Metabolic History: Reports: Diabetes, Type II Hematologic History: Reports: Other (See Below) Other Hematologic History: AV fistula Immunologic History: Reports: None Oncologic (Cancer) History: Reports: None Dermatologic History: Reports: None - Past Surgical History HEENT Surgical History: Reports: None, Laser Surgery Cardiovascular Surgical History: Reports: Other (See Below) Other Cardiovascular Surgeries/Procedures: left ext. AV fistual Respiratory Surgical History: Reports: None Female Surgical History: Reports: None Endocrine Surgical History: Reports: None Neurological Surgical History: Reports: None Musculoskeletal Surgical History: Reports: None Oncologic Surgical History: Reports: None Dermatological Surgical History: Reports: None Social & Family History - Family History Family Medical History: No Pertinent Family History - Tobacco Use Tobacco Use Status *Q: Never Tobacco User Second Hand Smoke Exposure: No - Caffeine Use Caffeine Use: Reports: None - Recreational Drug Use Recreational Drug Use: No - Living Situation & Occupation Occupation: Unemployed ED ROS GENERAL - Review of Systems Review Of Systems: See Below Constitutional: Reports: Fever, Chills. Denies: Diaphoresis HEENT: Reports: No Symptoms Respiratory: Reports: Shortness of Breath, Wheezing, Cough, Sputum Cardiovascular: Reports: No Symptoms Endocrine: Reports: No Symptoms GI/Abdominal: Reports: No Symptoms. Denies: Abdominal Pain, Constipation, Diarrhea, Nausea, Vomiting : Reports: No Symptoms. Denies: Dysuria, Frequency Musculoskeletal: Reports: No Symptoms Skin: Reports: No Symptoms Neurological: Reports: No Symptoms. Denies: Headache Psychiatric: Reports: No Symptoms Hematologic/Lymphatic: Reports: No Symptoms Immunologic: Reports: No Symptoms ED EXAM, GENERAL - Physical Exam Exam: See Below Exam Limited By: No Limitations General Appearance: Alert, WD/WN, Mild Distress Ears: Normal External Exam, Hearing Grossly Normal Nose: Normal Inspection Throat/Mouth: Normal Inspection, Normal Voice, No Airway Compromise Head: Atraumatic, Normocephalic Neck: Normal Inspection, Supple, Non-Tender, Full Range of Motion Respiratory/Chest: Chest Non-Tender, Rhonchi (bilaterally ), Wheezing (bilaterally ), Prolonged Expiration. No: No Respiratory Distress (dyspnea at rest), Lungs Clear, Normal Breath Sounds Cardiovascular: Normal Peripheral Pulses, Regular Rate, Rhythm, Systolic Murmur. No: No Edema (trace to ble) Peripheral Pulses: 2+: Radial (L), Radial (R) GI/Abdominal: Normal Bowel Sounds, Soft, Non-Tender, No Distention (Female) Exam: Deferred Rectal (Female) Exam: Deferred Back Exam: Normal Inspection, Full Range of Motion Extremities: Normal Inspection, Normal Range of Motion, Non-Tender, Normal Capillary Refill, Pedal Edema (trace to ble). No: No Pedal Edema Neurological: Alert, Oriented, Normal Cognition Psychiatric: Normal Affect, Normal Mood Skin Exam: Warm, Dry, Intact, Normal Color, No Rash Lymphatic: No Adenopathy Course - Vital Signs Text/Narrative:: 60-year-old female presents to the emergency department today after her dialysis run with complaints of a 2-week history of severe cough and shortness of breath. Patient does have a history of asthma and has been using her rescue inhaler up to 3 times daily over the past 2 weeks. She denies any history of Covid but did have her Nhan & Nhan's Covid vaccine about 3 weeks ago and she states she did well with it. She states she has a 1 week history of fever and chills. States that she is still voiding however she denies any issues with dysuria or frequency. Patient does have audible expiratory wheezes on assessment with rhonchi bilaterally. Denies any abdominal pain, nausea, vomiting, or diarrhea. Denies any headache. I have ordered labs, a chest x-ray and a urinalysis. Patient's O2 sats are 95% on room air at the time of assessment. Last Recorded V/S: Last Vital Signs Temp 98.1 F 09/29/20 13:40 Pulse 70 09/29/20 13:40 Resp 18 09/29/20 13:40 BP 191/68 H 09/29/20 13:40 Pulse Ox 92 L 09/29/20 16:34 - Orders/Labs/Meds Orders: Active Orders 24 hr Category Date Time Status Oxygen Therapy, ED [RC] ASDIRECTED Care 09/29/20 15:36 Active RT Aerosol Therapy [RC] ASDIRECTED Care 09/29/20 14:49 Active RT Aerosol Therapy [RC] ASDIRECTED Care 09/29/20 16:34 Active Chest 2V [CR] Stat Exams 09/29/20 13:54 Taken Sodium Chloride 0.9% [Saline Flush] Med 09/29/20 13:54 Active 10 ml FLUSH ASDIRECTED PRN Saline Lock Insert [OM.PC] Stat Oth 09/29/20 13:54 Ordered Medication Orders Sodium Chloride (Sodium Chloride 0.9% 10 Ml Syringe) 10 ml FLUSH ASDIRECTED PRN PRN Reason: Keep Vein Open Last Admin: 09/29/20 15:37 Dose: 10 ml Documented by: HENRY Labs: Laboratory Tests 09/29/20 09/29/20 09/29/20 Range/Units 14:10 14:20 14:20 WBC 6.88 (3.98-10.04) K/mm3 RBC 3.09 L (3.98-5.22) M/mm3 Hgb 9.5 L D (11.2-15.7) gm/dl Hct 30.8 L (34.1-44.9) % MCV 99.7 H (79.4-94.8) fl MCH 30.7 (25.6-32.2) pg MCHC 30.8 L (32.2-35.5) g/dl RDW Std Deviation 52.8 H (36.4-46.3) fL Plt Count 235 (182-369) K/mm3 MPV 9.3 L (9.4-12.3) fl Neut % (Auto) 59.9 (34.0-71.1) % Lymph % (Auto) 24.9 (19.3-51.7) % [place] % (Auto) 9.4 (4.7-12.5) % Eos % (Auto) 5.1 (0.7-5.8) Baso % (Auto) 0.6 (0.1-1.2) % Neut # (Auto) 4.12 (1.56-6.13) K/mm3 Lymph # (Auto) 1.71 (1.18-3.74) K/mm3 [place] # (Auto) 0.65 H (0.24-0.36) K/mm3 Eos # (Auto) 0.35 (0.04-0.36) K/mm3 Baso # (Auto) 0.04 (0.01-0.08) K/mm3 D-Dimer, Quantitative (0.19-0.50) mg/L Sodium (136-145) mEq/L Potassium (3.5-5.1) mEq/L Chloride (98-107) mEq/L Carbon Dioxide (21-32) mEq/L Anion Gap (5-15) BUN (7-18) mg/dL Creatinine (0.55-1.02) mg/dL Est Cr Clr Drug Dosing mL/min Estimated GFR (MDRD) (>60) mL/min BUN/Creatinine Ratio (14-18) Glucose (80-115) mg/dL Calcium (8.5-10.1) mg/dL Total Bilirubin (0.2-1.0) mg/dL AST (15-37) U/L ALT (14-59) U/L Alkaline Phosphatase (46-116) U/L C-Reactive Protein (<1.0) mg/dL Total Protein (6.4-8.2) g/dl Albumin (3.4-5.0) g/dl Globulin gm/dL Albumin/Globulin Ratio (1-2) Urine Color Yellow (Yellow) Urine Appearance Slt cloudy H (Clear) Urine pH >=9.0 H (5.0-8.0) Ur Specific [place] 1.020 (1.005-1.030) Urine Protein 3+ H (Negative) Urine Glucose (UA) 2+ H (Negative) Urine Ketones Negative (Negative) Urine Occult Blood 1+ H (Negative) Urine Nitrite Negative (Negative) Urine Bilirubin Negative (Negative) Urine Urobilinogen 0.2 (0.2-1.0) Ur Leukocyte Esterase Negative (Negative) Urine RBC 0-5 (0-5) /hpf Urine WBC 0-5 (0-5) /hpf Ur Epithelial Cells 20-30 H (0-5) /hpf Urine Bacteria Few (FEW) /hpf Urine Mucus Few (FEW) /hpf Influenza Type A RNA Negative (NEGATIVE) Influenza Type B RNA Negative (NEGATIVE) SARS-CoV-2 RNA (TIFFANIE) Negative (NEGATIVE) 09/29/20 09/29/20 Range/Units 14:20 14:20 WBC (3.98-10.04) K/mm3 RBC (3.98-5.22) M/mm3 Hgb (11.2-15.7) gm/dl Hct (34.1-44.9) % MCV (79.4-94.8) fl MCH (25.6-32.2) pg MCHC (32.2-35.5) g/dl RDW Std Deviation (36.4-46.3) fL Plt Count (182-369) K/mm3 MPV (9.4-12.3) fl Neut % (Auto) (34.0-71.1) % Lymph % (Auto) (19.3-51.7) % [place] % (Auto) (4.7-12.5) % Eos % (Auto) (0.7-5.8) Baso % (Auto) (0.1-1.2) % Neut # (Auto) (1.56-6.13) K/mm3 Lymph # (Auto) (1.18-3.74) K/mm3 [place] # (Auto) (0.24-0.36) K/mm3 Eos # (Auto) (0.04-0.36) K/mm3 Baso # (Auto) (0.01-0.08) K/mm3 D-Dimer, Quantitative 0.60 H (0.19-0.50) mg/L Sodium 144 D (136-145) mEq/L Potassium 3.4 L (3.5-5.1) mEq/L Chloride 101 (98-107) mEq/L Carbon Dioxide 34 H D (21-32) mEq/L Anion Gap 12.4 (5-15) BUN 11 D (7-18) mg/dL Creatinine 3.0 H D (0.55-1.02) mg/dL Est Cr Clr Drug Dosing 14.14 mL/min Estimated GFR (MDRD) 16 (>60) mL/min BUN/Creatinine Ratio 3.7 L (14-18) Glucose 95 (80-115) mg/dL Calcium 9.3 (8.5-10.1) mg/dL Total Bilirubin 0.5 (0.2-1.0) mg/dL AST 21 (15-37) U/L ALT 43 (14-59) U/L Alkaline Phosphatase 87 (46-116) U/L C-Reactive Protein 0.9 (<1.0) mg/dL Total Protein 7.7 (6.4-8.2) g/dl Albumin 3.5 (3.4-5.0) g/dl Globulin 4.2 gm/dL Albumin/Globulin Ratio 0.8 L (1-2) Urine Color (Yellow) Urine Appearance (Clear) Urine pH (5.0-8.0) Ur Specific [place] (1.005-1.030) Urine Protein (Negative) Urine Glucose (UA) (Negative) Urine Ketones (Negative) Urine Occult Blood (Negative) Urine Nitrite (Negative) Urine Bilirubin (Negative) Urine Urobilinogen (0.2-1.0) Ur Leukocyte Esterase (Negative) Urine RBC (0-5) /hpf Urine WBC (0-5) /hpf Ur Epithelial Cells (0-5) /hpf Urine Bacteria (FEW) /hpf Urine Mucus (FEW) /hpf Influenza Type A RNA (NEGATIVE) Influenza Type B RNA (NEGATIVE) SARS-CoV-2 RNA (TIFFANIE) (NEGATIVE) Meds: Medications Generic Name Dose Route Start Last Admin Trade Name Jin PRN Reason Stop Dose Admin Sodium Chloride 10 ml 09/29/20 13:54 09/29/20 15:37 Sodium Chloride 0.9% 10 Ml Syringe FLUSH 10 ml ASDIRECTED PRN Administration Keep Vein Open Discontinued Medications Generic Name Dose Route Start Last Admin Trade Name Jin PRN Reason Stop Dose Admin Albuterol 2.5 mg 09/29/20 14:49 09/29/20 15:05 Albuterol 0.083% 2.5 Mg/3 Ml Neb Soln NEB 09/29/20 14:50 2.5 mg ONETIME ONE Administration Albuterol 2.5 mg 09/29/20 16:34 09/29/20 16:42 Albuterol 0.083% 2.5 Mg/3 Ml Neb Soln NEB 09/29/20 16:35 2.5 mg ONETIME ONE Administration Doxycycline Hyclate 100 mg 09/29/20 19:13 Doxycycline 100 Mg Cap PO 09/29/20 19:14 ONETIME ONE Methylprednisolone Sodium Succinate 125 mg 09/29/20 16:33 09/29/20 16:51 Methylprednisolone Sodium Succinate 125 Mg/2 Ml Sdv IVPUSH 09/29/20 16:34 125 mg ONETIME ONE Administration - Re-Assessments/Exams Free Text/Narrative Re-Assessment/Exam: 09/29/20 15:23 Hematology reveals WBC is 6.88, hemoglobin 9.5, hematocrit 30.8, chemistry reveals a sodium of 144, potassium 3.4, carbon dioxide 34, anion gap 12.4, BUN 11, creatinine 3.0 C-reactive protein 0.9 Urinalysis is negative for infection Influenza A, B, and Covid are all negative. Patient likely has bronchitis with asthma exacerbation. She will be discharged home with a prescription for Zithromax and orders to follow-up with her primary care physician Dr. Clarke early next week. 09/29/20 15:35 Pt's O2 sats down to 81% on room air while patient is laying flat and sleeping. O2 applied per nursing staff. I have ordered a ddimer which is likely going to bel elevated due to the patient's renal failure. 09/29/20 15:48 Portable chest xray reviewed by myself and Dr. Miller and nothing acute is appreciated. 09/29/20 16:38 Pt's d dimer is 0.6. It is unlikely that the patient has a PE. Will give the patient 125mg solumedrol and a second nebulizer treatment. 09/29/20 17:46 O2 saturations are now 99% on 2 liters. Nursing staff will attempt to titrate off oxygen. 09/29/20 19:07 Pt's O2 saturations are 90% on room air. I feel that this is as high as we will be able to get the saturations at the patient's hgb is 9.5. I will discharge her to home with a prescription for zithromax to treat bronchitis. Departure - Departure Time of Disposition: 19:08 Disposition: Home, Self-Care 01 Condition: Fair Clinical Impression: Bronchitis - Discharge Information Prescriptions: predniSONE 20 mg PO WITHBREAKFAST #5 tab Doxycycline [Vibra-Tabs] 100 mg PO BID #14 tab Referrals: Mavis Clarke MD [Primary Care Provider] - Forms: ED Department Discharge Additional Instructions: You were seen in the emergency department today with complaints of cough and shortness of breath x 2 weeks. Labs and chest xray were completed. It is likely that you have bronchitis. You were given nebulizer treatments in the ER and IV steroids. This seemed to help. I have sent a prescription for an antibiotic. This can be started tomorrow as you were given one in the ER today. You will need to take one tab twice daily until gone. I have also sent a prescription for prednisone to your pharmacy. This can also be started tomorrow. You need to take one tab daily until gone. Please follow up with Dr. Clarke in the clinic next week for a follow up visit. Should your condition worsen or change, please return to the emergency department. Sepsis Event Note (ED) - Evaluation Sepsis Screening Result: No Definite Risk - Focused Exam Vital Signs: Vital Signs Temp Pulse Resp BP Pulse Ox Pulse Ox Pulse Ox 09/29/20 16:34 92 L 09/29/20 15:38 94 L 09/29/20 15:28 81 L 09/29/20 14:49 93 L 09/29/20 13:40 98.1 F 70 18 191/68 H 87 L - My Orders Last 24 Hours: My Active Orders 09/29/20 13:54 Chest 2V [CR] Stat Sodium Chloride 0.9% [Saline Flush] 10 ml FLUSH ASDIRECTED PRN Saline Lock Insert [OM.PC] Stat 09/29/20 14:49 RT Aerosol Therapy [RC] ASDIRECTED 09/29/20 15:36 Oxygen Therapy, ED [RC] ASDIRECTED 09/29/20 16:34 RT Aerosol Therapy [RC] ASDIRECTED - Assessment/Plan Last 24 Hours: My Active Orders 09/29/20 13:54 Chest 2V [CR] Stat Sodium Chloride 0.9% [Saline Flush] 10 ml FLUSH ASDIRECTED PRN Saline Lock Insert [OM.PC] Stat 09/29/20 14:49 RT Aerosol Therapy [RC] ASDIRECTED 09/29/20 15:36 Oxygen Therapy, ED [RC] ASDIRECTED 09/29/20 16:34 RT Aerosol Therapy [RC] ASDIRECTED
[2020-09-29] MEDS ORDERED: Albuterol 0.083% 2.5 MG/3 ML Neb Soln NEB ONE ×2 (14:49→16:34)
[2020-09-29 15:08] LABS: CORONAVIRUS COVID-19 NAA NEGATIVE (NEGATIVE)
[2020-09-29] MEDS ORDERED: methylPREDNISolone Sodium Succinate 125 MG/2 ML SDV IVPUSH ONE (16:33)
[2020-09-29] MEDS ORDERED: Doxycycline 100 MG Cap PO ONE (19:13)
--- NOTE | 2020-09-30 09:45 | CR ---
Chest: PA and lateral views of the chest were obtained. Comparison: Prior chest x-ray of 03/20/20. Heart is enlarged. Pulmonary vessels are congested. Lungs otherwise are clear. No acute osseous finding is seen. Impression: 1. Cardiomegaly. 2. Pulmonary vascular congestion is present. Some of this appears chronic but I do believe there is acute pulmonary vascular congestion also superimposed. Diagnostic code #3
== END 2020-09-29 19:36 | disposition home or self-care (01) ==
LOC: JD.ED 13:31
DX: J40 Bronchitis, not specified as acute or chronic (principal); I10 Essential (primary) hypertension; E11.9 Type 2 diabetes mellitus without complications; Z88.8 Allergy status to other drugs, medicaments and biological substances; Z79.899 Other long term (current) drug therapy; Z20.822 Contact with and (suspected) exposure to COVID-19
CPT/HCPCS: 0240U; 36415; 71046; 80053; 81001; 85025; 85379; 86140; 94640; 96374; 99285; A9270; J2930; 99283

== ENCOUNTER 2020-12-18 05:26 | Emergency (ER) | payer BC ==
[2020-12-18] MEDS ORDERED: Sodium Chloride 0.9% 10 ML Syringe FLUSH PRN (05:51)
--- NOTE | 2020-12-18 05:59 | EDM.PDOC ---
ED HPI GENERAL MEDICAL PROBLEM - General Chief Complaint: Respiratory Problem Stated Complaint: SOB Time Seen by Provider: 12/18/20 05:47 Source of Information: Reports: Patient History Limitations: Reports: No Limitations - History of Present Illness INITIAL COMMENTS - FREE TEXT/NARRATIVE: The patient presents with shortness of breath. This started about a week ago. She has a history of renal failure and she has dialysis at 0730. She has no chest pain. She denies fever, chills, cough, congestion, abdominal pain, nausea or vomiting. She was admitted over a week ago in [place] for shortness of breath. She was in the hospital for about a week and was supposed to go home on oxygen but she did not. She has a history of asthma. Onset: Gradual Duration: Week(s): Severity: Moderate Improves with: Reports: None Worsens with: Reports: None Associated Symptoms: Reports: Shortness of Breath. Denies: Chest Pain, Cough, Fever/Chills, Headaches, Nausea/Vomiting - Related Data Allergies Allergy/AdvReac Type Severity Reaction Status Date / Time RONI Inhibitors AdvReac Cough Verified 12/18/20 05:40 Home Meds: Home Meds Albuterol Sulfate [Proventil Hfa] 2 puff INH Q6H PRN 12/05/19 [History] Doxazosin [Doxazosin Mesylate] 1 mg PO DAILY 12/05/19 [History] Losartan [Cozaar] 50 mg PO DAILY 12/05/19 [History] Metoprolol Tartrate 25 mg PO BID 12/05/19 [History] allopurinoL [Zyloprim] 200 mg PO DAILY 12/05/19 [History] amLODIPine [Norvasc] 10 mg PO DAILY 12/05/19 [History] Fluticasone/Vilanterol [Breo Ellipta 100-25 MCG Inhalation Kit] 1 puff IH DAILY 09/29/20 [History] Melatonin 3 mg PO BEDTIME 09/29/20 [History] Sevelamer Carbonate [Renvela] 2,400 mg PO TID 09/29/20 [History] Cinacalcet HCl 30 mg PO DAILY 12/18/20 [History] predniSONE [Prednisone] 40 mg PO DAILY #10 tablet 12/18/20 [Rx] Past Medical History HEENT History: Reports: Impaired Vision Cardiovascular History: Reports: Heart Murmur, Hypertension Respiratory History: Reports: Asthma, Pneumonia, Recurrent Gastrointestinal History: Reports: None Genitourinary History: Reports: Dialysis, Renal Disease [employer] History: Reports: None Musculoskeletal History: Reports: Gout Neurological History: Reports: TIA Psychiatric History: Reports: None Endocrine/Metabolic History: Reports: Diabetes, Type II Hematologic History: Reports: Other (See Below) Other Hematologic History: AV fistula Immunologic History: Reports: None Oncologic (Cancer) History: Reports: None Dermatologic History: Reports: None - Past Surgical History HEENT Surgical History: Reports: None, Laser Surgery Cardiovascular Surgical History: Reports: Other (See Below) Other Cardiovascular Surgeries/Procedures: left ext. AV fistual Respiratory Surgical History: Reports: None Female Surgical History: Reports: None Endocrine Surgical History: Reports: None Neurological Surgical History: Reports: None Musculoskeletal Surgical History: Reports: None Oncologic Surgical History: Reports: None Dermatological Surgical History: Reports: None Social & Family History - Family History Family Medical History: No Pertinent Family History - Tobacco Use Tobacco Use Status *Q: Never Tobacco User - Caffeine Use Caffeine Use: Reports: None - Living Situation & Occupation Occupation: Unemployed ED ROS GENERAL - Review of Systems Review Of Systems: See Below Constitutional: Reports: No Symptoms HEENT: Reports: No Symptoms Respiratory: Reports: Shortness of Breath. Denies: Cough Cardiovascular: Reports: No Symptoms Endocrine: Reports: No Symptoms GI/Abdominal: Reports: No Symptoms : Reports: No Symptoms Musculoskeletal: Reports: No Symptoms Skin: Reports: No Symptoms ED EXAM, GENERAL - Physical Exam Exam: See Below Exam Limited By: No Limitations General Appearance: Alert, No Apparent Distress Ears: Normal External Exam Nose: Normal Inspection Head: Atraumatic, Normocephalic Neck: Normal Inspection Respiratory/Chest: No Respiratory Distress, Decreased Breath Sounds, Other (grunting when sitting there) Cardiovascular: Regular Rate, Rhythm, No Edema, No Murmur GI/Abdominal: Soft, Non-Tender, No Organomegaly, No Mass Back Exam: Normal Inspection Extremities: Normal Inspection #1 Interpretation EKG Date: 12/18/20 Time: 05:41 Rhythm: NSR Rate (Beats/Min): 70 [place]: Normal P-Wave: Present QRS: Normal ST-T: Normal QT: Normal Course - Vital Signs Last Recorded V/S: Last Vital Signs Temp 98.2 F 12/18/20 05:41 Pulse 73 12/18/20 06:49 Resp 22 H 12/18/20 06:49 BP Pulse Ox 90 L 12/18/20 06:49 - Orders/Labs/Meds Orders: Active Orders 24 hr Category Date Time Status Cardiac Monitoring [RC] . DIRECTED Care 12/18/20 05:51 Active EKG Documentation Completion [RC] STAT Care 12/18/20 05:51 Active Oxygen Therapy [RC] PRN Care 12/18/20 05:51 Active Peripheral IV Care [RC] . DIRECTED Care 12/18/20 05:52 Active RT Aerosol Therapy [RC] ASDIRECTED Care 12/18/20 06:01 Active Chest 1V Frontal [CR] Stat Exams 12/18/20 05:52 Taken C-REACTIVE PROTEIN [CHEM] Stat Lab 12/18/20 06:22 Received COMPREHENSIVE METABOLIC PN,CMP [CHEM] Stat Lab 12/18/20 06:22 Received CORONAVIRUS COVID-19 TIFFANIE [MOLEC] Stat Lab 12/18/20 05:52 Received PRO B-TYPE NATRIUR PEPT,BNPPRO [CHEM] Stat Lab 12/18/20 06:22 Received TROPONIN I [CHEM] Stat Lab 12/18/20 06:22 Received Sodium Chloride 0.9% [Saline Flush] Med 12/18/20 05:51 Active 10 ml FLUSH ASDIRECTED PRN Peripheral IV Insertion Adult [OM.PC] Stat Oth 12/18/20 05:51 Ordered Medication Orders Sodium Chloride (Sodium Chloride 0.9% 10 Ml Syringe) 10 ml FLUSH ASDIRECTED PRN PRN Reason: Keep Vein Open Last Admin: 12/18/20 06:06 Dose: 10 ml Documented by: KEELEY Labs: Laboratory Tests 12/18/20 Range/Units 05:53 WBC 11.55 H (3.98-10.04) K/mm3 RBC 2.96 L (3.98-5.22) M/mm3 Hgb 9.1 L (11.2-15.7) gm/dl Hct 29.1 L (34.1-44.9) % MCV 98.3 H (79.4-94.8) fl MCH 30.7 (25.6-32.2) pg MCHC 31.3 L (32.2-35.5) g/dl RDW Std Deviation 50.9 H (36.4-46.3) fL Plt Count 227 (182-369) K/mm3 MPV 10.2 (9.4-12.3) fl Neut % (Auto) 77.0 H (34.0-71.1) % Lymph % (Auto) 13.3 L (19.3-51.7) % Wilson % (Auto) 5.6 (4.7-12.5) % Eos % (Auto) 3.5 (0.7-5.8) Baso % (Auto) 0.3 (0.1-1.2) % Neut # (Auto) 8.87 H (1.56-6.13) K/mm3 Lymph # (Auto) 1.54 (1.18-3.74) K/mm3 Wilson # (Auto) 0.65 H (0.24-0.36) K/mm3 Eos # (Auto) 0.41 H (0.04-0.36) K/mm3 Baso # (Auto) 0.04 (0.01-0.08) K/mm3 Manual Slide Review Abnormal smear Meds: Medications Generic Name Dose Route Start Last Admin Trade Name Freq PRN Reason Stop Dose Admin Sodium Chloride 10 ml 12/18/20 05:51 12/18/20 06:06 Sodium Chloride 0.9% 10 Ml Syringe FLUSH 10 ml ASDIRECTED PRN Administration Keep Vein Open Discontinued Medications Generic Name Dose Route Start Last Admin Trade Name Freq PRN Reason Stop Dose Admin Albuterol/Ipratropium 3 ml 12/18/20 06:01 12/18/20 06:10 Albuterol/Ipratropium 3.0-0.5 Mg/3 Ml Neb Soln NEB 12/18/20 06:02 3 ml ONETIME ONE Administration Methylprednisolone Sodium Succinate 125 mg 12/18/20 06:01 12/18/20 06:06 Methylprednisolone Sodium Succinate 125 Mg/2 Ml Sdv IVPUSH 12/18/20 06:02 125 mg ONETIME ONE Administration - Re-Assessments/Exams Free Text/Narrative Re-Assessment/Exam: 12/18/20 06:04 I ordered oxygen as needed, IV saline lock, EKG, CXR, duoneb, solu-medrol 125mg IV and labs. Her EKG shows a NSR with no acute changes. 12/18/20 07:01 Her WBC was elevated at 11.55. Her Hgb was low at 9.1. Her CXR shows congestive changes. 12/18/20 07:05 The patient is fluid overloaded and is having an asthma exacerbation. I will get her on prednisone and we will get her over to dialysis. Departure - Departure Time of Disposition: 07:10 Disposition: Home, Self-Care 01 Condition: Good Clinical Impression: Chronic kidney disease with end stage renal failure on dialysis Asthma exacerbation Qualifiers: Asthma severity: moderate Asthma persistence: unspecified Qualified Code(s): J45.901 - Unspecified asthma with (acute) exacerbation Fluid overload Qualifiers: Hypervolemia type: unspecified Qualified Code(s): E87.70 - Fluid overload, unspecified - Discharge Information *PRESCRIPTION DRUG MONITORING PROGRAM REVIEWED*: Not Applicable *COPY OF PRESCRIPTION DRUG MONITORING REPORT IN PATIENT DOUG: Not Applicable Prescriptions: predniSONE [Prednisone] 40 mg PO DAILY #10 tablet Referrals: PCP,None [Primary Care Provider] - Forms: ED Department Discharge Additional Instructions: Go directly to dialysis. That should help with your breathing. Take the prednisone daily for 5 days. Use your inhaler as needed for shortness of breath. Sepsis Event Note (ED) - Evaluation Sepsis Screening Result: No Definite Risk - Focused Exam Vital Signs: Vital Signs Temp Pulse Resp Pulse Ox Pulse Ox 12/18/20 06:49 73 22 H 90 L 12/18/20 06:11 91 L 12/18/20 05:41 98.2 F 78 30 H 95 - My Orders Last 24 Hours: My Active Orders 12/18/20 05:51 Cardiac Monitoring [RC] . DIRECTED EKG Documentation Completion [RC] STAT Oxygen Therapy [RC] PRN Sodium Chloride 0.9% [Saline Flush] 10 ml FLUSH ASDIRECTED PRN Peripheral IV Insertion Adult [OM.PC] Stat 12/18/20 05:52 Peripheral IV Care [RC] . DIRECTED Chest 1V Frontal [CR] Stat CORONAVIRUS COVID-19 TIFFANIE [MOLEC] Stat 12/18/20 06:01 RT Aerosol Therapy [RC] ASDIRECTED 12/18/20 06:22 C-REACTIVE PROTEIN [CHEM] Stat COMPREHENSIVE METABOLIC PN,CMP [CHEM] Stat PRO B-TYPE NATRIUR PEPT,BNPPRO [CHEM] Stat TROPONIN I [CHEM] Stat - Assessment/Plan Last 24 Hours: My Active Orders 12/18/20 05:51 Cardiac Monitoring [RC] . DIRECTED EKG Documentation Completion [RC] STAT Oxygen Therapy [RC] PRN Sodium Chloride 0.9% [Saline Flush] 10 ml FLUSH ASDIRECTED PRN Peripheral IV Insertion Adult [OM.PC] Stat 12/18/20 05:52 Peripheral IV Care [RC] . DIRECTED Chest 1V Frontal [CR] Stat CORONAVIRUS COVID-19 TIFFANIE [MOLEC] Stat 12/18/20 06:01 RT Aerosol Therapy [RC] ASDIRECTED 12/18/20 06:22 C-REACTIVE PROTEIN [CHEM] Stat COMPREHENSIVE METABOLIC PN,CMP [CHEM] Stat PRO B-TYPE NATRIUR PEPT,BNPPRO [CHEM] Stat TROPONIN I [CHEM] Stat
[2020-12-18] MEDS ORDERED: Albuterol/Ipratropium 3.0-0.5 MG/3 ML Neb Soln NEB ONE (06:01)
[2020-12-18] MEDS ORDERED: methylPREDNISolone Sodium Succinate 125 MG/2 ML SDV IVPUSH ONE (06:01)
[2020-12-18 06:49] VITALS: PULSE 73
--- NOTE | 2020-12-18 10:06 | CR ---
Chest: Portable view of the chest was obtained. Comparison: Prior chest x-ray dated 09/29/20. Heart size is enlarged. Tortuous thoracic aorta is noted. Pulmonary vessels are slightly increased. Lungs otherwise are clear. Bony structures show nothing acute. Impression: 1. Findings suspicious for mild CHF which is most likely minimally increased from prior study. Diagnostic code #3
== END 2020-12-18 07:20 | disposition home or self-care (01) ==
LOC: JD.ED 05:26
DX: J45.901 Unspecified asthma with (acute) exacerbation (principal); I12.0 Hypertensive chronic kidney disease with stage 5 chronic kidney disease or end stage renal disease; E11.22 Type 2 diabetes mellitus with diabetic chronic kidney disease; N18.6 End stage renal disease; Z99.2 Dependence on renal dialysis; Z88.8 Allergy status to other drugs, medicaments and biological substances
CPT/HCPCS: 36415; 71045; 80053; 83880; 84484; 85025; 86140; 87635; 93005; 94640; 96374; 99285; J2930; 93010; 99284; J7620-GY; U0002